=== PATIENT | female | born 1995 | race Caucasian/White ===

== ENCOUNTER 2018-03-30 03:40 | Emergency (ER) | payer BC, SELFPAY ==
[2018-03-30 03:41] VITALS: BP 138/84; PULSE 83; RESP 16; TEMP 36.5; O2SAT 100; BMI 37.0
[2018-03-30] MEDS: Morphine 4 MG/ML Syringe IV ×2 (04:32→05:30)
[2018-03-30] MEDS: Ondansetron 4 MG/2 ML Vial IV (04:32)
[2018-03-30 04:53] LABS: Absolute Lymphocyte Count 2.37 X10^3/ul (0.83-4.51); Absolute Neutrophil Count 4.1 X10^3/uL (2.0-7.7); Basophil# 0.02 X10^3/uL; Basophil% 0.3 % (0-1); Eosinophil# 0.08 X10^3/uL; Eosinophils% 1.1 % (0-5); Hematocrit 40.5 % (37-47); Hemoglobin 13.5 g/dl (12.0-15.0); Lymphocyte # 2.37 X10^3/ul (4.0); Lymphocyte % 32.3 % (19-41); Mean Corp Hgb Conc 33.3 g/gl (32-36); Mean Platelet Vol. 9.3 fl (6.2-12.0); Monocyte# 0.75 X10^3/uL; Monocyte% 10.2 % (0-10); Neutrophil # 4.12 X10^3/uL (2.7-7.7); Neutrophil % 56.1 % (47-70); Platelet Count 264 K/mm3 (150-450); RBC Distribution Width CV 13.1 % (11.6-14.6); RBC Distribution Width SD 42.7 fl (35.1-43.9); White Blood Count 7.3 K/mm3 (4.4-11.0)
[2018-03-30 04:55] LABS: POSITIVE COUNT NO; POSITIVE DIFFERENTIAL NO; POSITIVE MORPHOLOGY NO
--- NOTE | 2018-03-30 05:10 | ED.DCSUM_ITS ---
- ER Visit Summary Date of Service: 03/30/18 Chief Complaint: Abdominal pain History of Present Illness: The patient is a 23 F who presents with right upper quadrant abdominal pain. She states that for the past 2 weeks she has had diarrhea. For the past week she has had nausea and pain with eating. Tonight the pain was more severe beginning at 0100 hours. She has a history of anxiety and is currently on Lexapro. Patient describes the pain is sharp and stabbing in the right upper quadrant and radiates towards her umbilicus. Physical Examination: Afebrile vital signs are stable Gen: Well-nourished well-developed Head: Normocephalic atraumatic Eyes: Perrl EOMI ENT: TMs clear no rhinorrhea moist mucous membranes Neck: Supple no lymphadenopathy no JVD nontender CVS: Regular rate rhythm no murmurs normal S1-S2 Respiratory: No distress clear to auscultation bilaterally chest nontender Abdomen: Soft mild tenderness to palpation of the right upper quadrant without guarding or rebound nondistended normal bowel sounds no masses Back: Nontender Extremity: Nontender no edema Skin: Normal color no rash Neuro: alert orientated ?3 CN II-XII intact normal strength sensation reflexes gait cerebellar Psych: Normal affect normal mood Test Results: White count is normal Emergency Department Course and Treatment: Bedside ultrasound done by this physician demonstrates gallstones. I do not see any pericholecystic fluid. Patient received morphine and Zofran. This improved the patient's pain. She states that she had a couple episodes where she had pain again and required a second dose of morphine. CBC CMP and lipase were negative. Patient is resting comfortably. I do not believe she needs emergent cholecystectomy. We will set the patient up for outpatient gallbladder ultrasound. We will refer her to Dr. Verde who is on-call for general surgery [facility]. Write for pain and nausea medication. Return instructions given. Impression: 1. Biliary colic 2. Cholelithiasis This note was generated with [employer] dictation software. It may contain incorrect words, spelling, and punctuation that were not noted in review of the chart prior to signing ED Disposition - Plan for ED Patient: Disposition: Home or Assisted Living Chief Complaint: Abd Pain Instructions: Discharge Instructions for Gallstones Prescriptions: Hydrocodone Bitart/Apap 5-325 [[place] 5MG-325MG] 1 tab PO Q6H PRN PRN 3 Days #12 tab PRN Reason: Pain Ondansetron [Zofran Odt] 4 mg PO Q6H PRN PRN #10 tab PRN Reason: Nausea Referrals: Inés Verde MD [STAFF PHYSICIAN] - (Call today to arrange early follow-up. Please tell them you were seen in the emergency department and have gallstones.) Additional Instructions: You need to have a formal gallbladder ultrasound. This is been ordered. Return if concerns fever. You need to follow-up with surgery.
[2018-03-30 05:16] LABS: ALB/GLOB Ratio 0.9 RATIO (0.9-2.4); AST(SGOT) 17 U/L (15-37); Alanine Aminotransfer ALT/SGPT 30 U/L (13-56); Alkaline Phosphatase 67 U/L (45-117); Anion Gap 10 (5-15); BUN 14 mg/dL (7-18); BUN/Creat Ratio 17.7 RATIO (10-20); Calcium,Total 7.9 mg/dL (8.5-10.1); Chloride 107 mmol/L (98-107); Creatinine, Serum 0.79 mg/dL (0.55-1.02); EST Glomerular Filtration Rate 95 mL/min (>60); Est Glom Filt Rate - Afr Amer 115 mL/min (>60); Estimated Creatinine Clearance 78.87 ml/min; Globulin 3.5 g/dL (2.2-4.2); Glucose 94 mg/dL (74-106); Lipase 118 U/L (73-393); Potassium 3.9 mmol/L (3.5-5.1); Protein, Total 6.5 g/dL (6.4-8.2); Sodium Level 141 mmol/L (136-145)
[2018-03-30 05:21] LABS: Pregnancy, Serum, hCG Quali. NEGATIVE Negative (0-9 Nonpreg)
[2018-03-30 05:32] VITALS: BP 133/70; PULSE 73; O2SAT 100
[2018-03-30 06:46] VITALS: BP 146/78; PULSE 73; RESP 18; O2SAT 97
--- NOTE | 2018-03-30 06:47 | ED.RN ---
THIS NURSE REVIEWED D/C INSTRUCTIONS WITH PT. PT VERBALIZED UNDERSTANDING OF INSTRUCTIONS. IV D/C. IV CATHETER INTACT. PT TOLERATED WELL. PT DENIES FURTHER NEEDS OR QUESTIONS AT THIS TIME. PT AMBULATES FROM ROOM ON OWN WITHOUT ASSISTANCE FROM STAFF
--- OUTSIDE RECORDS SUMMARY | 2018-07-01 11:13 | XMS RPT_ITS ---
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 Primary Visit Diagnosis:Screening for STD (sexually transmitted disease) [Z11.3] Other Visit Diagnosis:Encounter for surveillance of implantable subdermal contraceptive [Z30.46] Order(s):GC/CHLAMYDIA DNA DET [SQGCCAMP] Order #: [id number]. #:[id number] SYPHILIS IGG WITH CONF [SQSYPHGX] Order #: [id number]. #:[id number] HIV 1,2 COMBO (AG/AB) [SQHIV12] Order #: [id number]. #:[id number] HEP C AB IA BLOOD [SQAHCV] Order #: [id number]. #:[id number] VAGINALIS AMPLIFICATION [SQTRVAMP] Order #: [id number] FUTURE BACT/TITUS VAG GRAM STAIN [SQBVCNSM] Order #: [id number] FUTURE Prescriptions as of 04/16/2018 Sig: NEXPLANON SDRM by SUBDERMAL route continuous. ACETAMINOPHEN 325 MG TABLET Take 650 mg by mouth every 6 * DICLOFENAC POTASSIUM 50 MG TA* Take 1 tablet by mouth three * Patient not taking: Reported on 02/26/2018 Problem List As Of Date 04/16/2018 Noted Resolved Late care [O09.30] INVALID FOR*05/31/2015 More... History of depression [Z86.59] INVALID FOR* More... Family history of defects [Z82.79] INVALID FOR* More... Supervision of normal first [Z34.00] INVALID FOR*05/31/2015 More... Disposition: Return for Annual exam. . Follow-up and Disposition History Recorded Encounter Status:Closed by ARABELLA WU on 04/18/18 12 LEAD ELECTROCARDIOGRAM Observed: 04/12/2018 Status: F Source: [place] 1:51 PM [facility] REPOSITORY [facility] Cardiovascular Services [address] [place], [place] [address] [address] 12 Lead EKG 04/08/18 1119 MR#: [id number] Acct: [id number] Name: KATHY CANTOR Rep #: [id number] : 1995 23 From: Obed Esteban MD Attending Dr: Inés Verde MD Status: DEP [facility] Ordering Dr: Inés Verde MD Date: 04/08/18 Location: [facility] [place] Sex: F C Admitted: Test Reason : PRE-OP Blood Pressure : / mmHG Vent. Rate : 057 BPM Atrial Rate : 057 BPM P-R Int : 130 ms QRS Dur : 084 ms QT Int : 406 ms P-R-T Axes : 041 052 034 degrees QTc Int : 395 ms Sinus bradycardia with sinus arrhythmia Otherwise normal ECG Confirmed by EULALIA WILEY, OBED ([id number]), deputy editor in chief RODRIGUEZ MONDRAGON ([id number]) on 04/12/2018 1:51:02 PM Referred By: Inés Verde Confirmed By:OBED ESTEBAN MD 04/12/18 1351 Date Obed Esteban MD CC: Jeremie Crow MD; Inés Verde MD Signed DISCHARGE INSTRUCTION Observed: 04/08/2018 Status: F Source: [place] 3:00 PM [facility] REPOSITORY [facility] Medical Records Department [address] [place] [address] Instructions for Home/Discharge Instructions 04/08/18 1253 MR#: [id number] Acct: [id number] Name: KATHY CANTOR Rep #: [id number] : 1995 23 From: Inés Verde MD PCP: Jeremie Crow MD Status: REG [facility] [place] Discharge Diet: Light diet - advance as tolerated Discharge Activity: May not drive while taking narcotic pain medications. May shower in (days): 1 Lifting Restrictions: no lifting >20 lb for 4 weeks Call your doctor if your incision/area has: Continuous Slow Oozing, Sudden Increased Bleeding, Increased Pain/ Swelling, Increased Redness, Foul Smelling Discharge, Swelling at the incision site Call your doctor if you observe: Fever of 101 or Higher Remove Dressing in (days):: 2 - steri strips will fall off in 7-10 days Additional Instructions: Okay to take ibuprofen 400-600 mg PO q6hr PRN along with the Vicodin/Percocet. Avoid Tylenol since there is already Tylenol in the Vicodin/Percocet. Take all pain meds with food. Vicodin/Percocet can cause constipation recommend taking daily stool softener (i.e. Colace/docusate) while taking the pain meds. Recommend starting some MiraLAX tomorrow night if no bowel movement. If still no bowel movement the following day recommend taking magnesium citrate half the bottle and waiting 4-6 hours if still no results take the other half the bottle. Allergies/Adverse Reactions: Allergies No Known Allergies Allergy (Verified 04/07/18 09:02) Medications to take at Discharge Escitalopram Oxalate [Lexapro] 10 mg PO DAILY 03/30/18 Ondansetron [Zofran Odt] 4 mg PO Q6H PRN PRN #10 tab 03/30/18 hydrocodone 5 mg-acetaminophen 325 mg tablet 1 tab PO Q6H PRN 04/02/18 pantoprazole 40 mg tablet,delayed release 40 mg PO DAILY #30 tab 04/02/18 Etonogestrel [Nexplanon] 68 mg BC DAILY 04/07/18 Hydrocodone Bitart/Apap 5-325 [[place] 5MG-325MG] 1 - 2 tablet PO Q4H PRN PRN 5 Days #25 tablet 04/08/18 The following prescriptions were given: Hydrocodone Bitart/Apap 5-325 [[place] 5MG-325MG] 1 - 2 tablet PO Q4H PRN PRN 5 Days #25 tablet PRN Reason: Pain Orders to be completed after discharge: ,Urine Time Frame: 04/08/18, Location: Laboratory Primary Care Physician: Haja Crow MD [Primary Care Provider] - Test Results: Test results from this visit will be discussed in further detail at your follow-up appointment, if applicable. Please Follow Up With: Inés Verde MD - after 5pm/weekends call [phone] with any concerns When: call office for f/u in 2 weeks Proposed Discharge Date: 04/08/18 04/08/18 1500 <Electronically signed by Inés Verde MD> Date Inés Verde MD CC: Jeremie Crow MD Signed OPERATIVE REPORT Observed: 04/08/2018 Status: F Source: [place] 2:58 PM [facility] REPOSITORY [facility] Medical Records Department [address] [place] [address] Operative Report 04/08/18 1455 MR#: [id number] Acct: [id number] Name: KATHY CANTOR Rep #: [id number] : 1995 23 From: Inés Verde MD PCP: Jeremie Crow MD Status: REG [facility] [place] [place] Location: [place] [address] Report of Operation Date of Procedure: 04/08/18 Post-Operative Diagnosis: Acute cholecystitis, cholelithiasis Surgery/Procedure Performed:: Same delivery coordinator: Ramona Napier Type of Anesthesia:: General/Supplemental Anesthesiologist: Gabriel Chávez Special Medications: Cefotetan 2 g IV x1 Specimen's removed: Gallbladder and stones Estimated Blood Loss (mL): <10 cc Fluids Replaced: 1000 cc Description of Procedure: Indications this is a 23 year-old female who developed abdominal pain/nausea/vomiting and on workup was found to have cholelithiasis with a normal common bile duct. Laparoscopic cholecystectomy was elected. Description procedure: The patient was placed on operating table in supine position. General Anesthesia was induced. A timeout was completed verifying correct patient, procedure, site, position, social, and special equipment prior to beginning procedure. An orogastric tube was placed. The abdomen was prepped and draped in usual sterile fashion. An incision was made in the natural skin line above the umbilicus. The fascia was elevated and incised. The peritoneum was elevated and incised. Entry into the peritoneum was confirmed visually and no bowel was noted in the vicinity of the incision. Barfield trocar was placed. The abdomen was insufflated with carbon dioxide to a pressure of 12-15 mmHg. Patient tolerated insufflation well. The laparoscope was then inserted and abdomen inspected. No injuries from initial trocar placement were noted. Additional trochars were then inserted in the following locations 5 mm trocar in the epigastrium and 2 more 5 mm trochars along the right costal margin. The abdomen was inspected no abnormalities were found. The table is placed in reverse Trendelenburg position with the right side up. The adhesions between the gallbladder and omentum were lysed sharply. The dome of the gallbladder was grasped with atraumatic grasper passed through the lateral port and retracted over the dome of the liver. Infundibulum was then grasped with atraumatic grasper through the midclavicular port and retracted to the right lower quadrant. This maneuver exposed Calot's triangle. The peritoneum overlying the gallbladder infundibulum was then incised and cystic duct and artery identified and circumferentially dissected. The Juarez catheter was used for cholangiograms. Angiograms did show good flow into the duodenum with no filling defect as well as no filling defects at the bifurcation of the bile ducts. The cystic duct and artery were then doubly clipped and divided close to the gallbladder. The gallbladder then dissected from its peritoneal attachments by electrocautery. Hemostasis was checked and the gallbladder and contained stones were removed using the endoscopic retrieval bag through the umbilical port. The gallbladder is passed off table as specimen. The gallbladder fossa was copiously irrigated with saline and hemostasis obtained. There is no evidence of bleeding from the gallbladder fossa or cystic artery leakage of bile from the cystic duct stump. Secondary trochars removed under direct vision. No bleeding was noted the trocar sites. The laparoscope was withdrawn and umbilical trocar removed. The abdomen was allowed to collapse. The fascia of the 12 mm trocar was closed with a [id number]-[id number] 0 Vicryl suture. The skin was closed with sutures of 4-0 Monocryl and Steri-Strips. The orogastric tube was removed and the patient was extubated. The patient tolerated procedure well and was taken to the postanesthesia care unit in stable condition. - Complications none 04/08/18 1458 <Electronically signed by Inés Verde MD> Date Inés Verde MD CC: Jeremie Crow MD; Inés Verde MD Signed GALLBLADDER Observed: 04/08/2018 Status: F Source: [place] 12:55 PM [facility] REPOSITORY Patient: KATHY CANTOR : 1995 (23/) Acct Num: [id number] Phys: Inés Verde MD Unit Num: [id number] Loc: [facility] [place] Specimen: [id number] Received: 04/09/18 - 1432 Spec Type: GALLBLADDE TISSUES 1 TISSUES: Gallbladder, NOS GROSS DESCRIPTION Received is one container labeled with the patient's name and designated gallbladder. The specimen consists of a partially opened gallbladder measuring 7 x 5 x 2 cm. The external surface is smooth and glistening. Focally, it is granular, hemorrhagic and contains cautery artifact. The lumen of the gallbladder contains yellow-green mucoid bile. The specimen container contains multiple calculi and fragments of leos-white calculi ranging in size from <0.1 to 2 cm in greatest dimension. The mucosa is bile-stained and without any mass lesions. The gallbladder wall averages 0.3 cm in thickness and is free of mass lesions. Geriatric Care Manager sections of the gallbladder and the cystic duct are submitted in one cassette. / AM:lily 04/09/18 TC:3 CPT: 01582 HEADER OPERATION: Laparoscopic cholecystectomy with IOC PRE-OP DIAGNOSIS: Cholelithiasis, right upper quadrant pain TISSUE SUBMITTED: Gallbladder MICROSCOPIC DESCRIPTION Slides are reviewed. MICROSCOPIC DIAGNOSIS Gallbladder: Chronic cholecystitis and cholelithiasis. Reactive epithelial changes. SJ:lily 04/12/18 Signed Dirk Soto MD 04/12/18 <signature on file> Performed By: #### PGALL #### [facility] [address] [place] [address]. [place], [address] LIVER PROFILE Collected: 04/08/2018 Status: F Source: [place] 11:16 AM [facility] REPOSITORY TYPE CODE TESTS RESULT OUT OF RANGE REFERENCE UNITS LAB L501.1500 6.4-8.2 g/dL Normal T PROT 6.8 LAB L501.1800 3.2-5.0 g/dL Normal ALB 3.4 LAB L501.1950 2.2-4.2 g/dL Normal GLOB 3.4 LAB L501.4100 15-37 U/L Normal AST 16 LAB L501.4305 45-117 U/L Normal ALK P 63 LAB L501.4405 13-56 U/L Normal ALT 17 LAB L501.4600 0.20-1.00 mg/dL Normal T BILI 0.60 LAB L501.4700 0.00-0.30 mg/dL Normal D BILI 0.16 Performed By: #### L500.3400 #### [facility] [address] [place], [address] ,URINE Collected: 04/08/2018 Status: F Source: [place] 11:05 AM [facility] REPOSITORY TYPE CODE TESTS RESULT OUT OF REFERENCE UNITS RANGE LAB L400.8000 Negative Normal HCGUQUAL Negative Result Comment: Very dilute urine specimens, as indicated by a low specific gravity, may not contain reimbursement representative levels of hCG. If is still suspected, a first morning urine specimen should be collected 48 hours later and tested. Performed By: #### L400.7600 #### [facility] [address] [facility] [place], [address] CHOLANGIOGRAM/ O Observed: 04/08/2018 Status: F Source: [place] R,INITIAL 12:40 AM [facility] REPOSITORY [facility] Imaging Services [address] [facility] [place] [address] Cholangiogram/ O R,Initial MR#: [id number] Acct: [id number] Name: KATHY CANTOR Rep #: [id number] : 1995 F 23 From: Drew Baxter DO PCP: Jeremie Crow MD Status: [facility] Study: Cholangiogram/ O R,Initial Date of Exam: 04/08/18 Exam# [id number] Ordering Dr: Inés Verde MD CLINICAL HISTORY: Female, 23 years old. Cholelithiasis. PROCEDURE: CHOLANGIOGRAM - interoperative FLUOROSCOPY TIME (if supplied): ( ) minutes/second TECHNIQUE: 36 interprocedural images were presented for interpretation. FINDINGS: Images demonstrate cannulization of the cystic duct stump. There is injection of contrast which fills the intra and extrahepatic biliary system. There is no stenosis filling defect or dilatation. There is free spillage of contrast into the duodenum. Please refer to the operative report for further details. RAD/Cholangiogram/ O R,Initial IMPRESSION: Interoperative cholangiogram. Electronically Signed: Drew Baxter DO at 19:02 EST Tel [phone], Service support , CC: Jeremie Crow MD; Inés Verde MD Retail Salesworker: Signed EMERGENCY DEPARTMENT Observed: 04/05/2018 Status: F Source: [place] SUMMARY 7:03 AM [facility] REPOSITORY [facility] Medical Records Department [address] [place] [address] Emergency Department Summary 03/30/18 0508 MR#: [id number] Acct: [id number] Name: KATHY CANTOR Rep #: [id number] : 1995 23 From: Hilario Marcus DO PCP: Jeremie Crow MD Status: DEP ER - ER Visit Summary Date of Service: 03/30/18 Chief Complaint: Abdominal pain History of Present Illness: The patient is a 23 F who presents with right upper quadrant abdominal pain. She states that for the past 2 weeks she has had diarrhea. For the past week she has had nausea and pain with eating. Tonight the pain was more severe beginning at 0100 hours. She has a history of anxiety and is currently on Lexapro. Patient describes the pain is sharp and stabbing in the right upper quadrant and radiates towards her umbilicus. Physical Examination: Afebrile vital signs are stable Gen: Well-nourished well-developed Head: Normocephalic atraumatic Eyes: Perrl EOMI ENT: TMs clear no rhinorrhea moist mucous membranes Neck: Supple no lymphadenopathy no JVD nontender CVS: Regular rate rhythm no murmurs normal S1-S2 Respiratory: No distress clear to auscultation bilaterally chest nontender Abdomen: Soft mild tenderness to palpation of the right upper quadrant without guarding or rebound nondistended normal bowel sounds no masses Back: Nontender Extremity: Nontender no edema Skin: Normal color no rash Neuro: alert orientated 3 CN II-XII intact normal strength sensation reflexes gait cerebellar Psych: Normal affect normal mood Test Results: White count is normal Emergency Department Course and Treatment: Bedside ultrasound done by this physician demonstrates gallstones. I do not see any pericholecystic fluid. Patient received morphine and Zofran. This improved the patient's pain. She states that she had a couple episodes where she had pain again and required a second dose of morphine. CBC CMP and lipase were negative. Patient is resting comfortably. I do not believe she needs emergent cholecystectomy. We will set the patient up for outpatient gallbladder ultrasound. We will refer her to Dr. Verde who is on-call for general surgery [facility]. Write for pain and nausea medication. Return instructions given. Impression: 1. Biliary colic 2. Cholelithiasis This note was generated with [employer]ar[employer] dictation software. It may contain incorrect words, spelling, and punctuation that were not noted in review of the chart prior to signing ED Disposition - Plan for ED Patient: Disposition: Home or Assisted Living Chief Complaint: Abd Pain Instructions: Discharge Instructions for Gallstones Prescriptions: Hydrocodone Bitart/Apap 5-325 [[place] 5MG-325MG] 1 tab PO Q6H PRN PRN 3 Days #12 tab PRN Reason: Pain Ondansetron [Zofran Odt] 4 mg PO Q6H PRN PRN #10 tab PRN Reason: Nausea Referrals: Inés Verde MD [STAFF PHYSICIAN] - (Call today to arrange early follow-up. Please tell them you were seen in the emergency department and have gallstones.) Additional Instructions: You need to have a formal gallbladder ultrasound. This is been ordered. Return if concerns fever. You need to follow-up with surgery. What to do if you have Problems For any increased pain, shortness of breath, bleeding, nausea or vomiting, chest pain, or any unexpected problems, contact your Primary Care Provider. Call [facility] ([phone]) or report to the closest Emergency Room. Call 911 if necessary. 04/05/18 0703 <Electronically signed by Hilario Marcus DO> Date Hilario Marcus DO Cosigner Signature (If Indicated): Date CC: Jeremie Crow MD SURGERY VISIT REPORT Observed: 04/02/2018 Status: F Source: [place] 11:04 AM [facility] REPOSITORY [facility] [address] [place] [address] OFFICE VISIT Date of Service: 04/02/18 MR#: [id number] Acct: [id number] Name: KATHY CANTOR Rep #: [id number] : 1995 Provider: Inés Verde MD Age/Sex: 23/F Location: 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 Is patient in pain?: Yes (RUQ/ Epigastric) Pain scale (1-10): 4 Allergies No Known Allergies Allergy (Verified 03/30/18 03:43) Medications Escitalopram Oxalate [Lexapro] 10 mg PO DAILY 03/30/18 [History Confirmed 04/02/18] Ondansetron [Zofran Odt] 4 mg PO Q6H PRN PRN #10 tab 03/30/18 [Rx Confirmed 04/02/18] hydrocodone 5 mg-acetaminophen 325 mg tablet 1 tab PO Q6H PRN 04/02/18 [History Confirmed 04/02/18] pantoprazole 40 mg tablet,delayed release 40 mg PO DAILY #30 tab 04/02/18 [Rx Confirmed 04/02/18] PFSH Medical History Acid reflux (Acute) Constipation (Acute) Diarrhea (Acute) Nausea (Acute) Abdominal pain (Acute) Sleep apnea (Acute) Anxiety (Acute) Depression (Acute) Fatigue (Acute) Surgical History History of carpal tunnel surgery (Acute) right carpal tunnel (Inactive) Family History Grandmother Breast cancer Social History Smoking Status: Never smoker second hand exposure: No alcohol intake: current alcohol intake frequency: a few times a month substance use type: does not use caffeine: Yes HPI HPI HPI: KATHY CANTOR, is a 23 F who presents to the office today for gallstones, right upper quadrant pain. Patient states for a couple months she has been having nausea after eating along with some right upper quadrant pain and also been having diarrhea. Patient did go the ER on 03/30/2018 due to increased pain which she worse at 1 AM and woke her up from sleep. That night patient did have Willoughby's around 5 PM and did have some right upper quadrant pain at that time was able to fall asleep around 9 PM. Patient was given some pain meds in the ER her liver functions as well as a white blood count was within normal limits. A bedside ultrasound by the ER doctor did show gallstones. Patient did undergo a formal ultrasound which showed cholelithiasis, no pericholecystic fluid, common bile duct of 2.4 mm, gallbladder wall in one location was measured at 3.4 on my remeasurement is more like 3 mm. Patient also complains of daily reflux symptoms with burning upper esophagus after eating. She is currently on no medications for this. She also states she has had some epigastric pain as well as the right upper quadrant pain. Patient states that her problems are either diarrhea or constipation. Patient states she has been able to eat she is tries to eat smaller meals like this morning she had a [employer] sandwich states that her abdominal pain was okay. ROS General General: Yes weight change (gain 20lb in 6-9 months) HEENT HEENT: No difficulty swallowing, eye injury, eye surgery, swollen glands or hoarseness Endo Endocrine: No thyroid disease, diabetes mellitus, thyroid cancer, Hair loss, heat intolerance or cold intolerance Skin Skin: No rash or changing moles Musc Musculoskeletal: Yes back problems; no arthritis, rheumatoid arthritis, gout or joint pain Cardio Cardiovascular: No murmur, pacemaker, heart disease, atrial fibrillation, high blood pressure, heart attack, heart stent, palpitations, shortness of breat with exertion or chest pain Psych Psychiatric: Yes depression and anxiety Resp Respiratory: Yes shortness of breath, Yes sleep apnea, No cough, No COPD, No asthma, No emphysema, No wheezing Gastro Gastrointestinal: Yes abdominal pain, Yes diarrhea, Yes constipation, No blood in stool, Yes acid reflux, No hemorrhoids, No ulcers, Yes gallbladder problem, No black,tarry stools, Yes nausea or vomiting (no vomiting) [place] Hematologic: No blood thinners, No blood disorders, No bleeding, No anemia, No blood clots Neuro Neurologic: No lack of coordination, No confusion Exam Const General: cooperative, comfortable, no acute distress Resp Effort AND Inspection: normal respiratory effort Cardio Rate: regular rate Heart Sounds: no murmurs GI Inspection: non-distended, obesity Palpation: soft, no guarding, tender (RUQ,epigastric>LUQ, no PS) Assessment AND Plan Problems 1. Cholelithiasis K80.20 2. GERD (gastroesophageal reflux disease) K21.9 3. RUQ pain R10.11 4. 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 We will plan for surgery on 04/08/18. We will also start patient on Protonix 40 mg p.o. daily discussed with patient okay to take famotidine 20 mg to 40 mg daily for the first 2 days to help control the initial symptoms as Protonix may take 1- 2 days to work. Reviewed the anatomy with the patient and discussed the procedure: laparoscopic cholecystectomy with cholangiograms, possible open. Review risks including but not limited to bleeding, infection, hernia, bile leak/retained gallstones requiring another procedure ERCP- Endoscopic Retrograde Cholangiopancreatography, injury to another organ (bile ducts, common bile duct, small bowel, etc.) which may require transfer to her surgery care facility and conversion to an open procedure. All questions were answered. Inés Verde M.D. Pager: [phone] [facility] [address] [place] [address], [facility], [address] [place] [address] Office: [phone] Medications New: Plan Detail Follow Up We will schedule surgery lap scopic cholecystectomy for 04/01 Coding Level of Care Code Off vis,new,level 4 Diagnoses Cholelithiasis K80.20 GERD (gastroesophageal reflux disease) K21.9 RUQ pain R10.11 Epigastric abdominal pain R10.13 Time Spent (min) 45 04/02/18 1104 <Electronically signed by Inés Verde MD> Date Inés Verde MD Cosigner Signature: Date (if applicable) CC: Jeremie Crow MD GALLBLADDER Observed: 04/01/2018 Status: F Source: [place] 9:24 AM [facility] REPOSITORY [facility] Imaging Services [address] [place] [address] Gallbladder MR#: [id number] Acct: [id number] Name: CANTORPRAKASH RESTREPORA Alvarado Rep #: [id number] : 1995 F 23 From: Ron Esparza MD PCP: Jeremie Crow MD Status: REG CLI Study: Gallbladder Date of Exam: 04/01/18 Exam# [id number] Ordering Dr: Hilario Marcus DO STUDY: ABDOMINAL ULTRASOUND - RIGHT UPPER QUADRANT REASON FOR VISIT: Female, 23 years old. Biliary colic, pain in the right upper quadrant especially after meals. TECHNIQUE: Ultrasound evaluation of the right upper quadrant was performed with real-time and static sylvester-scale imaging. TECHNICAL QUALITY: Adequate. COMPARISON: CT abdomen and pelvis 02/10/2016. FINDINGS: Liver: The liver measures 15.4 cm. There is normal echogenicity of the liver. The bile ducts are within normal limits. There is hepatic color flow. The direction of portal flow is hepatopetal. There is no demonstrated mass lesion. Gallbladder: Normal distended gallbladder. The gallbladder wall measures 3.4 mm. There is a negative sonographic Perry's sign. There is no pericholecystic fluid. Multiple small echogenic shadowing gallstones. Common Bile Duct (C.B.D.): The common bile duct measures 2.4 mm. Pancreas: Normal size of the head, body and tail of the pancreas. There is normal echogenicity of the pancreas. There is no demonstrated pancreatic mass or cyst. Right Kidney: Normal size of the right kidney. The right kidney measures 10.0 cm. Normal renal cortex. The right cortex measures 1.0 cm. There is no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 Psychiatry Mother DEPRESSION - Psychiatry Maternal Grandmother DEPRESSION - Breast Cancer Maternal Grandmother 70 - Diabetes Paternal Grandfather - Hypertension Paternal Grandfather - Asthma Brother Social History Marital status: Single Spouse name: Years of education: 12 Number of children: Occupational History Occupation Employer Comment assembly [employer] Social History Main Topics Smoking status: Former Smoker Packs/day: 0.00 Years: 1.00 Quit date: 07/27/2012 Smokeless status: Never Used Alcohol use: Yes Drug use: No Sexual activity: Yes Partners with: Male control/protection: Implant Current Outpatient Prescriptions: ETONOGESTREL (NEXPLANON SDRM) by SUBDERMAL route continuous. acetaminophen (TYLENOL) 325 mg tablet Take 650 mg by mouth every 6 hours as needed. Ibuprofen 200 mg cap Take by mouth as needed. Ugvsvkop-Ma-Ifr-Fe-FA ( VITAMIN) tab Take 1 tablet by mouth. No current facility-administered medications for this visit. Allergies As of Date: 05/13/2017 (No Known Allergies) Fully Assessed 05/13/2017 REVIEW OF SYSTEMS Abdomen: No bloating, early satiety, indigestion, or increased flatulence. No abdominal pain, nausea, vomiting, diarrhea, or constipation. Bladder: No dysuria, gross hematuria, urinary frequency, urinary urgency, or incontinence. Breast: No breast lumps, nipple d/c, overlying skin changes, redness or skin retraction. Expanded ROS: N/A Allergies and current medication updated:Yes EXAM: BP 110/68 Wt 187 lb (84.8kg) GENERAL: pleasant, female in no apparent distress HEENT: Normocephalic and atraumatic NECK: Supple and full range of motion DERMATOLOGY: Normal and without lesions ABDOMEN: soft, non-tender and no masses PELVIC: external genitalia normal, normal Bartholin's glands, urethra, [place]'s glands, no vulvar lesions, no cervical lesions, good vaginal support, normal appearing perineal body and perianal region. White discharge, small amount BIMANUAL: uterus normal size, shape and consistency, no adnexal masses and non-tender NEURO: alert and oriented x3,exam grossly non-focal EXTREMITIES: normal ASSESSMENT AND PLAN: 1. Pelvic pain in female - ICD9: 625.9, ICD10: R10.2 (primary diagnosis) - PELVIC US WHI - URINE CULTURE - HCG QUAL UR 2. High risk sexual behavior - ICD9: V69.2, ICD10: Z72.51 - TRICHOMONAS PREP - GC/CHLAMYDIA DNA DET 3. Vaginal discharge - ICD9: 623.5, ICD10: N89.8 - BACT/TITUS VAG GRAM STAIN Follow up in 2 weeks for results. Arabella Wu CNM Take Down Inspector offered: Patient declines. CNOV Observed: 05/13/2017 Status: COMPLETED Source: [place] 3:45 PM [facility] REPOSITORY Office Visit (WOOB) KATHY CANTOR ([id number]) 1995 F Date Time Provider Department 05/13/17 3:45 PM ARABELLA WU) WOOB During your visit today, we recorded the following information about you: Blood pressure Weight 110/68 84.8 kg Arabella Wu CNM 05/13/2017 4:40 PM Signed Kathy Cantor is a 22 year old female who presents for problem visit pelvic pain HPI: cramping and irregular menses. Cramping frequent, most days, goes from light dull cramping 3/10 to sharp stabbing pain /10. Pain started the beginning of February 2017. Pain started after Carpal tunnel surgery(February 05, 2017. Was taking Vicodin for first two weeks after surgery. Takes Ibuprofen for cramping but not effective. Bleeding throughout the month, bleeding every other week. Prior to surgery had menses every month. Nexplanon inserted 05/2015. Pain is a 3/10 today. Denies any vaginal itching, burning or odor. Single, current partner x 6 months. PAST MEDICAL HISTORY Diagnosis Date - Depression - FRACTURE 2003 ARMS, PLAYGROUND ACCIDENT - Venereal warts PAST SURGICAL HISTORY Procedure Laterality Date - CARPAL TUNNEL Right 02/05/2017 - NEXPLANON INSERTION 06/11/2015 inserted by DM FAMILY HISTORY Problem Relation Age of Onset - Alcohol/Drug Mother DRUG - Psychiatry Mother DEPRESSION - Psychiatry Maternal Grandmother DEPRESSION - Breast Cancer Maternal Grandmother 70 - Diabetes Paternal Grandfather - Hypertension Paternal Grandfather - Asthma Brother Social History Marital status: Single Spouse name: Years of education: 12 Number of children: Occupational History Occupation Employer Comment assembly [employer] Social History Main Topics Smoking status: Former Smoker Packs/day: 0.00 Years: 1.00 Quit date: 07/27/2012 Smokeless status: Never Used Alcohol use: Yes Drug use: No Sexual activity: Yes Partners with: Male control/protection: Implant Current Outpatient Prescriptions: ETONOGESTREL (NEXPLANON SDRM) by SUBDERMAL route continuous. acetaminophen (TYLENOL) 325 mg tablet Take 650 mg by mouth every 6 hours as needed. Ibuprofen 200 mg cap Take by mouth as needed. Aqledtng-Kk-Aul-Fe-FA ( VITAMIN) tab Take 1 tablet by mouth. No current facility-administered medications for this visit. Allergies As of Date: 05/13/2017 (No Known Allergies) Fully Assessed 05/13/2017 REVIEW OF SYSTEMS Abdomen: No bloating, early satiety, indigestion, or increased flatulence. No abdominal pain, nausea, vomiting, diarrhea, or constipation. Bladder: No dysuria, gross hematuria, urinary frequency, urinary urgency, or incontinence. Breast: No breast lumps, nipple d/c, overlying skin changes, redness or skin retraction. Expanded ROS: N/A Allergies and current medication updated:Yes EXAM: BP 110/68 Wt 187 lb (84.8kg) GENERAL: pleasant, female in no apparent distress HEENT: Normocephalic and atraumatic NECK: Supple and full range of motion DERMATOLOGY: Normal and without lesions ABDOMEN: soft, non-tender and no masses PELVIC: external genitalia normal, normal Bartholin's glands, urethra, [place]'s glands, no vulvar lesions, no cervical lesions, good vaginal support, normal appearing perineal body and perianal region. White discharge, small amount BIMANUAL: uterus normal size, shape and consistency, no adnexal masses and non-tender NEURO: alert and oriented x3,exam grossly non-focal EXTREMITIES: normal ASSESSMENT AND PLAN: 1. Pelvic pain in female - ICD9: 625.9, ICD10: R10.2 (primary diagnosis) - PELVIC US WHI - URINE CULTURE - HCG QUAL UR 2. High risk sexual behavior - ICD9: V69.2, ICD10: Z72.51 - TRICHOMONAS PREP - GC/CHLAMYDIA DNA DET 3. Vaginal discharge - ICD9: 623.5, ICD10: N89.8 - BACT/TITUS VAG GRAM STAIN Follow up in 2 weeks for results. Arabella Wu CNM Take Down Inspector offered: Patient declines. Annmarie Carpenter Ma 05/13/2017 4:46 PM Signed Addended by: ANNMARIE CARPENTER MA on: 05/13/2017 04:46 PM Modules accepted: Orders Referring Provider: SELF [200] Allergies As of Date: 05/13/2017 (No Known Allergies) Date Reviewed: 05/13/2017 Reviewed by: Arabella Wu - Fully Assessed Reason for Visit: Abdominal Pain [1] Cmt: Cramping with Nexplanon Primary Visit Diagnosis:Pelvic pain in female [R10.2] Other Visit Diagnoses:High risk sexual behavior [Z72.51] Vaginal discharge [N89.8] Order(s):PELVIC US WHI [2250776] Order #: [id number]: 1 URINE CULTURE [SQURCUL] Order #: [id number] BACT/TITUS VAG GRAM STAIN [SQBVCNSM] Order #: [id number] FUTURE TRICHOMONAS PREP [SQTRICHO] Order #: [id number] GC/CHLAMYDIA DNA DET [SQGCCAMP] Order #: [id number] HCG QUAL UR [SQUHCG] Order #: [id number] FUTURE HCG QUAL UR B/O [7938128] Order #: [id number] Prescriptions as of 05/13/2017 Sig: NEXPLANON SDRM by SUBDERMAL route continuous. ACETAMINOPHEN 325 MG TABLET Take 650 mg by mouth every 6 * IBUPROFEN 200 MG CAPSULE Take by mouth as needed. VITAMIN,CALCIUM,MINE* Take 1 tablet by mouth. Problem List As Of Date 05/13/2017 Noted Resolved Late care [O09.30] INVALID FOR*05/31/2015 More... History of depression [Z86.59] INVALID FOR* More... Family history of defects [Z82.79] INVALID FOR* More... Supervision of normal first [Z34.00] INVALID FOR*05/31/2015 More... Disposition: Return in about 2 weeks (around 05/27/2017) for follow up in 2 weeks after U/S. Follow-up and Disposition History Recorded Encounter Status:Closed by ARABELLA WU on 05/13/17 Observed: 05/13/2017 Status: F Source: [place] BACT/CAND VAG GRM ST 1:04 AM [facility] REPOSITORY Sp. Request/Comment: - Swab Smear Result - BACTERIAL VAGINOSIS RESULT: Stain results consistent with bacterial vaginosis. --> ABNORMAL ALERT No Yeast observed No Polymorphonuclear leukocytes Performed By: #### BVCNSM #### [facility] [address] [id number] Observed: 05/13/2017 Status: F Source: [place] TRICHOMONAS PREP 1:03 AM [facility] REPOSITORY Sp. Request/Comment: - Swab Smear Result - Negative for Trichomonas vaginalis antigen This test was developed and its performance characteristics determined by [facility]'s [facility] [place] ([facility]). It has not been cleared or approved by the FDA. [facility] is regulated under CLIA as qualified to perform high-complexity testing. This test is used for clinical purposes. It should not be regarded as investigational or for research. Performed By: #### TRICHO #### [facility] [address] [place], [place] [address] ORTHOPEDIC VISIT Observed: 05/06/2017 Status: F Source: [place] REPORT 12:18 PM [facility] REPOSITORY [facility] Orthopa[facility]ics AND Sports Medicine [address] [place] [address] OFFICE VISIT Date of Service: 03/18/17 MR#: [id number] Acct: [id number] Name: KATHY CANTOR Rep #: [id number] : 1995 Provider: Anton Kevin DO Age/Sex: 22/F Location: [facility] [place].SMO Status: Signed Intake Intake Visit Reasons: RIGHT WRIST Is patient in pain?: No Allergies No Known Allergies Allergy (Verified 03/18/17 13:03) Medications Acetaminophen [Tylenol Extra Strength] 500 - 1,000 mg PO Q6H PRN PRN 01/30/17 [History Confirmed 03/18/17] Docusate Sodium [Colace] 100 mg PO BID PRN PRN #10 cap 02/05/17 [Rx Confirmed 03/18/17] ProMETHAzine [Phenergan] 25 mg PO Q4H PRN PRN #10 tab 02/05/17 [Rx Confirmed 03/18/17] PFSH Medical History Surgical aftercare, musculoskeletal system (Acute) Surgical History right carpal tunnel (Inactive) Social History Smoking Status: Never smoker HPI RIGHT WRIST: Details: KATHY CANTOR is a 22 year old F here today for f/u ctr dos 02/05/17 who is doing well, she has no complaints of pain and just a slight sensation change. Denies numbness, tingling or other associated symptoms. ROS Const Reports system reviewed and no additional complaints, except as docu Eyes Reports system reviewed and no additional complaints, except as docu ENT Reports system reviewed and no additional complaints, except as docu Card Reports system reviewed and no additional complaints, except as docu Resp Reports system reviewed and no additional complaints, except as docu GI Reports system reviewed and no additional complaints, except as docu Musc Reports as per HPI, Reports system reviewed and no additional complaints, except as docu Skin/Breast Reports system reviewed and no additional complaints, except as docu Neuro Yes system reviewed and no additional complaints, except as docu Psych Reports system reviewed and no additional complaints, except as docu Endo Reports system reviewed and no additional complaints, except as docu Ortho Exam Right Wrist Skin/Wound: Yes CDI Contralateral Normal: Yes Right Wrist: Yes ROM-Extension 0-60, ROM-Flexion 0-80, ROM- Pronation 0-80 and ROM-Supination 0-90 Motor: EPL: 5, FDP-2: 5, 1st Dorsal Interosseous: 5, APB: 5 Sensation: Radial: I, Ulnar: I, Median: I Assessment AND Plan Problems 1. Orthopedic aftercare Plan Assessment: After orthopedic status post right wrist open carpal tunnel release-doing well. Plan: We will provide the patient with a return to work slip at this point time. I will see the patient back 6 weeks as needed. A major issues please contact me. 03/18/17 1130 <Electronically signed by Anton Kevin DO> Date Anton Kevin DO Cosign Signature: Date (if applicable) CC: OFFICE VISIT REPORT Observed: 03/18/2017 Status: F Source: ARNEL 2:52 PM [facility] [place] [address] OFFICE VISIT Status: Signed Patient: KATHY CANTOR Date of Service: 03/18/17 MR#: [id number] : 1995 Provider: Anton Kevin DO Acct: [id number] Age/Sex: 22/F [place] [place]: Intake Intake Visit Reasons: RIGHT WRIST Is patient in pain?: No Allergies No Known Allergies Allergy (Verified 03/18/17 13:03) Medications Acetaminophen [Tylenol Extra Strength] 500 - 1,000 mg PO Q6H PRN PRN 01/30/17 [History Confirmed 03/18/17] Docusate Sodium [Colace] 100 mg PO BID PRN PRN #10 cap 02/05/17 [Rx Confirmed 03/18/17] ProMETHAzine [Phenergan] 25 mg PO Q4H PRN PRN #10 tab 02/05/17 [Rx Confirmed 03/18/17] PFSH Medical History Surgical aftercare, musculoskeletal system (Acute) Surgical History right carpal tunnel (Inactive) Social History Smoking Status: Never smoker HPI RIGHT WRIST: Details: KATHY CANTOR is a 22 year old F here today for f/u ctr dos 02/05/17 who is doing well, she has no complaints of pain and just a slight sensation change. Denies numbness, tingling or other associated symptoms. ROS Const Reports system reviewed and no additional complaints, except as docu Eyes Reports system reviewed and no additional complaints, except as docu ENT Reports system reviewed and no additional complaints, except as docu Card Reports system reviewed and no additional complaints, except as docu Resp Reports system reviewed and no additional complaints, except as docu GI Reports system reviewed and no additional complaints, except as docu Musc Reports as per HPI, Reports system reviewed and no additional complaints, except as docu Skin/Breast Reports system reviewed and no additional complaints, except as docu Neuro Yes system reviewed and no additional complaints, except as docu Psych Reports system reviewed and no additional complaints, except as docu Endo Reports system reviewed and no additional complaints, except as docu 03/18/17 1452 <Electronically signed by Anton Kevin DO> Date Anton Kevin DO Cosigner Signature (if applicable): Date CC: Status: ALLERGIES ALLERGIES DATE TYPE / CODE NAME / CODE REACTION SEVERITY SOURCE 04/22/2018 Drug No Known Unknown [place] [facility] Allergy/416 Allergies/V27708 Hospital 283319(SNOM 0388(RXNORM) Repository ED CT) Drug NO KNOWN [facility] Class/42740 ALLERGIES Main [place] 1003(SNOMED Repository CT) ENCOUNTERS ENCOUNTERS ADMIT/DISCHARGE ACCOUNT ADMITTING ENCOUNTER LOCATION SOURCE NUMBER CLASS 04/22/2018/04/22/19 [id number] Ambulatory BMSBuilding:B [place] 19 MS.[facility] Repository 04/20/2018/04/21/19 [id number] Ambulatory [address] Repository 04/16/2018/04/16/19 [id number] Ambulatory [address] Repository 04/16/2018/04/19/19 [id number] Ambulatory [address] Repository 04/08/2018 [id number] Ambulatory BMSBuilding:B [place] MS.CF.[facility] Repository 04/08/2018/04/08/20 [id number] Ambulatory [address] ing:SDCRoom: Repository AC15 04/08/2018 [id number] Ambulatory BMSBuilding:W [place] [facility] Repository 04/02/2018/04/02/20 [id number] Ambulatory BMSBuilding:B [place] [address] MS[facility] Repository 04/01/2018 [id number] Ambulatory [facility] ing:US Repository 03/30/2018/03/30/20 [id number] Emergency [address] ing:ED Repository 02/26/2018/03/01/20 [id number] Ambulatory [address] Repository 06/09/2017/06/16/19 [id number] Ambulatory [address] Repository 05/21/2017/05/22/19 [id number] Ambulatory [address] Repository 05/13/2017/05/14/19 [id number] Ambulatory [address] Repository 03/18/2017/03/18/20 [id number] Ambulatory BMSBuilding:B [place] [facility] MS[facility] Repository PAYERS PAYERS ENCOUNTER GUARANTOR PAYER SUBSCRIBER SOURCE 04/22/2018 KATHY Alvarado Primary KATHY [id number] [facility] y Number: [id number] [id number] Repository [address]Ydd: [phone] sugar Date:5567-06-66Nx [phone] () [address] [place] [address]LC: 04/22/2018 Secondary NOT GIVENUNK [place] Insurance:SELF PAY [facility] Number: Effective Repository Date:2018-04-20 04/08/2018 KATHY J Primary KATHY J [place] [id number] Insurance:ANTHEMPolic HUFFMANDOB: Community [place]QU[place] y Number: [id number], [place] [id number] Repository [address]Bhi: [phone] sugar Date:6230-08-86Gd [phone] () [address] [place] [address]LN: 04/08/2018 Secondary NOT GIVENUNK [place] Insurance:SELF PAY [facility] Number: Effective Repository Date:2018-04-08 04/08/2018 KATHY J Primary KATHY J [place] [id number] Insurance:ANTHEMPolic HUFFMANDOB: Community DEQUAN y Number: [id number], [place] [id number] Repository [address]Ecs: [phone] sugar Date:2030-43-06Hp [phone] () [address] [place] [address]KE: 04/08/2018 Secondary NOT GIVENUNK [place] Insurance:SELF PAY [facility] Number: Effective Repository Date:2018-04-07 04/08/2018 KATHY J Primary KATHY J [place] [id number] Insurance:ANTHEMPolic HUFFMANDOB: Community DEQUAN y Number: [id number], [place] [id number] Repository [address]Qtg: [phone] sugar Date:4286-19-69Xd [phone] () [address], [place] [address]KN: 04/08/2018 Secondary NOT GIVENUNK [place] Insurance:SELF PAY [facility] Number: Effective Repository Date:2018-04-08 04/02/2018 KATHY J Primary KATHY J [place] [id number] Insurance:ANTHEMPolic HUFFMANDOB: Community DEQUAN y Number: [id number], [place] [id number] Repository [address]Pmt: [phone] sugar Date:7487-80-49Vf [phone] () [address] [place] [address]TS: 04/02/2018 Secondary NOT GIVENUNK [place] Insurance:SELF PAY [facility] Number: Effective Repository Date:2018-04-01 04/01/2018 KATHY J Primary KATHY J [place] [id number] Insurance:ANTHEMPolic HUFFMANDOB: Community DEQUAN y Number: [id number], [place] [id number] Repository [address]Ejr: [phone] sugar Date:0174-77-10Uk [phone] () [address] [place] [address]KY: 04/01/2018 Secondary NOT GIVENUNK [place] Insurance:SELF PAY [facility] Number: Effective Repository Date:2018-03-30 03/30/2018 KATHY J Primary KATHY J [place] [id number] Insurance:ANTHEMPolic HUFFMANDOB: Community DEQUAN y Number: [id number], [place] [id number] Repository [address]Jdg: [phone] sugar Date:5692-07-48Mk [phone] () [address] [place] [address]ZK: 03/30/2018 Secondary NOT GIVENUNK [place] Insurance:SELF PAY [facility] Number: Effective Repository Date:2018-03-30 03/18/2017 KATHY J Primary KATHY J [place] [id number] Insurance:ANTHEMPolic HUFFMANDOB: Community DEQUAN y Number: [id number], [place] [id number] Repository [address]Qiy: [phone] sugar Date:3815-89-18CD [phone] () [address], [place] [address]WY: 03/18/2017 Secondary KATHY J [place] Insurance:SELF INS HUFFMANDOB: Community [facility] Number: [id number] Hospital [id number] Repository Date:5212-07-99CDKEVMCUYUNA [facility] [address] [address]VS[place], [place] [address]PJ: 03/18/2017 Tertiary NOT GIVENUNK [place] Insurance:SELF PAY [facility] Number: Effective Repository Date:2017-03-14
== END 2018-03-30 06:48 | disposition home or self-care (01) ==
PROVIDERS: Emergency Provider Emergency Medicine; Family Provider Family Medicine; PCP Family Medicine
DX: K80.70 Calculus of gallbladder and bile duct without cholecystitis without obstruction (principal); F41.9 Anxiety disorder, unspecified
CPT/HCPCS: 80053; 83690; 84703; 85025; 96374; 96375; 96376; 99283; A4216; J2405

== ENCOUNTER → 2018-04-01 09:19 | Outpatient (CLI) | payer BC, SELFPAY ==
[2018-03-30 03:41] VITALS: BMI 37.0
--- NOTE | 2018-04-01 09:24 | US_ITS ---
STUDY: ABDOMINAL ULTRASOUND - RIGHT UPPER QUADRANT REASON FOR VISIT: Female, 23 years old. Biliary colic, pain in the right upper quadrant especially after meals. TECHNIQUE: Ultrasound evaluation of the right upper quadrant was performed with real-time and static sylvester-scale imaging. TECHNICAL QUALITY: Adequate. COMPARISON: CT abdomen and pelvis 02/10/2016. FINDINGS: Liver: The liver measures 15.4 cm. There is normal echogenicity of the liver. The bile ducts are within normal limits. There is hepatic color flow. The direction of portal flow is hepatopetal. There is no demonstrated mass lesion. Gallbladder: Normal distended gallbladder. The gallbladder wall measures 3.4 mm. There is a negative sonographic Perry's sign. There is no pericholecystic fluid. Multiple small echogenic shadowing gallstones. Common Bile Duct (C.B.D.): The common bile duct measures 2.4 mm. Pancreas: Normal size of the head, body and tail of the pancreas. There is normal echogenicity of the pancreas. There is no demonstrated pancreatic mass or cyst. Right Kidney: Normal size of the right kidney. The right kidney measures 10.0 cm. Normal renal cortex. The right cortex measures 1.0 cm. There is no demonstrated renal mass or cyst. There is no right hydronephrosis. US/Gallbladder IMPRESSION: Cholelithiasis without secondary sonographic features of acute cholecystitis. No biliary ductal ectasia. Electronically Signed: Ron Esparza MD at 11:17 EST Tel , Service support ,
== END ==
PROVIDERS: Family Provider Family Medicine; PCP Family Medicine; Referring Provider Emergency Medicine; Visit Provider Emergency Medicine
DX: K80.20 Calculus of gallbladder without cholecystitis without obstruction (principal)
CPT/HCPCS: 76705

== ENCOUNTER 2018-04-08 10:51 | Day surgery (SDC) | payer BC, SELFPAY ==
[2018-04-02 10:28] VITALS: BMI 37.0
[2018-04-08] VITALS (10 sets, daily range): BP systolic 110–123; BP diastolic 58–76; PULSE 63–88; RESP 14–18; TEMP 36.4–37.6; O2SAT 93–100; BMI 38.3
--- NOTE | 2018-04-08 11:06 | EKG12_ITS ---
Test Reason : PRE-OP Blood Pressure : / mmHG Vent. Rate : 057 BPM Atrial Rate : 057 BPM P-R Int : 130 ms QRS Dur : 084 ms QT Int : 406 ms P-R-T Axes : 041 052 034 degrees QTc Int : 395 ms Sinus bradycardia with sinus arrhythmia Otherwise normal ECG Confirmed by EULALIA WILEY, LINDA ([id number]), editor greeting card RODRIGUEZ MONDRAGON ([id number]) on 04/12/2018 1:51:02 PM Referred By: Inés Verde Confirmed By:LINDA ESTEBAN MD
[2018-04-08 11:15] LABS: Internal QC Validated? YES +Cl - CLEAR BKGD; Pregnancy, Urine Negative Negative
[2018-04-08 11:44] LABS: AST(SGOT) 16 U/L (15-37); Alanine Aminotransfer ALT/SGPT 17 U/L (13-56); Albumin, Serum 3.4 g/dL (3.2-5.0); Alkaline Phosphatase 63 U/L (45-117); Bilirubin, Direct 0.16 mg/dL (0.00-0.30); Globulin 3.4 g/dL (2.2-4.2); Protein, Total 6.8 g/dL (6.4-8.2)
--- NOTE | 2018-04-08 12:55 | DCINST_ITS ---
Discharge Diet: Light diet - advance as tolerated Discharge Activity: May not drive while taking narcotic pain medications. May shower in (days): 1 Lifting Restrictions: no lifting >20 lb for 4 weeks Call your doctor if your incision/area has: Continuous Slow Oozing, Sudden Increased Bleeding, Increased Pain/ Swelling, Increased Redness, Foul Smelling Discharge, Swelling at the incision site Call your doctor if you observe: Fever of 101 or Higher Remove Dressing in (days):: 2 - steri strips will fall off in 7-10 days Additional Instructions: Okay to take ibuprofen 400-600 mg PO q6hr PRN along with the Vicodin/Percocet. Avoid Tylenol since there is already Tylenol in the Vicodin/Percocet. Take all pain meds with food. Vicodin/Percocet can cause constipation recommend taking daily stool softener (i.e. Colace/docusate) while taking the pain meds. Recommend starting some MiraLAX tomorrow night if no bowel movement. If still no bowel movement the following day recommend taking magnesium citrate half the bottle and waiting 4-6 hours if still no results take the other half the bottle. Allergies/Adverse Reactions: Allergies No Known Allergies Allergy (Verified 04/07/18 09:02) Medications to take at Discharge Escitalopram Oxalate [Lexapro] 10 mg PO DAILY 03/30/18 Ondansetron [Zofran Odt] 4 mg PO Q6H PRN PRN #10 tab 03/30/18 hydrocodone 5 mg-acetaminophen 325 mg tablet 1 tab PO Q6H PRN 04/02/18 pantoprazole 40 mg tablet,delayed release 40 mg PO DAILY #30 tab 04/02/18 Etonogestrel [Nexplanon] 68 mg BC DAILY 04/07/18 Hydrocodone Bitart/Apap 5-325 [[place] 5MG-325MG] 1 - 2 tablet PO Q4H PRN PRN 5 Days #25 tablet 04/08/18 The following prescriptions were given: Hydrocodone Bitart/Apap 5-325 [[place] 5MG-325MG] 1 - 2 tablet PO Q4H PRN PRN 5 Days #25 tablet PRN Reason: Pain Orders to be completed after discharge: ,Urine Time Frame: 04/08/18, Location: Laboratory Primary Care Physician: Haja Crow MD [Primary Care Provider] - Test Results: Test results from this visit will be discussed in further detail at your follow- up appointment, if applicable. Please Follow Up With: Inés Verde MD - after 5pm/weekends call [phone] with any concerns When: call office for f/u in 2 weeks Proposed Discharge Date: 04/08/18
--- NOTE | 2018-04-08 12:55 | GALL_PTH ---
PATIENT: KATHY SOUZA [place] [facility] [id number] AGE/SX: 23/F ROOM: RE04/08/[address]: Dr. Inés Verde MD : [id number] BED: DIS: 04/08/2018 SPEC #: [id number] RECD: 04/09/18 14:32 STATUS: SUSAN RENanci #: [id number] [place]: 04/08/18 12:[address]: Inés Vedre DEPT: SURGICAL PATHOLOGY RECD BY: Ron Woods ENTERED: 04/09/18 14:33 SP TYPE: ISACC LARA DR: Dr. Jeremie Crow MD Tissues: Gallbladder, NOS Procedures: Surgery Specimen Level III HEADER OPERATION: Laparoscopic cholecystectomy with IOC PRE-OP DIAGNOSIS: Cholelithiasis, right upper quadrant pain TISSUE SUBMITTED: Gallbladder MICROSCOPIC DIAGNOSIS Gallbladder: Chronic cholecystitis and cholelithiasis. Reactive epithelial changes. SJ:lily 04/12/18 MICROSCOPIC DESCRIPTION Slides are reviewed. GROSS DESCRIPTION Received is one container labeled with the patient's name and designated gallbladder. The specimen consists of a partially opened gallbladder measuring 7 x 5 x 2 cm. The external surface is smooth and glistening. Focally, it is granular, hemorrhagic and contains cautery artifact. The lumen of the gallbladder contains yellow-green mucoid bile. The specimen container contains multiple calculi and fragments of leos-white calculi ranging in size from <0.1 to 2 cm in greatest dimension. The mucosa is bile-stained and without any mass lesions. The gallbladder wall averages 0.3 cm in thickness and is free of mass lesions. Clutch Specialist sections of the gallbladder and the cystic duct are submitted in one cassette. / AM:lily 04/09/18 TC:3 CPT: 88256
--- NOTE | 2018-04-08 14:30 | RAD_ITS ---
CLINICAL HISTORY: Female, 23 years old. Cholelithiasis. PROCEDURE: CHOLANGIOGRAM - interoperative FLUOROSCOPY TIME (if supplied): ( ) minutes/second TECHNIQUE: 36 interprocedural images were presented for interpretation. FINDINGS: Images demonstrate cannulization of the cystic duct stump. There is injection of contrast which fills the intra and extrahepatic biliary system. There is no stenosis filling defect or dilatation. There is free spillage of contrast into the duodenum. Please refer to the operative report for further details. RAD/Cholangiogram/ O R,Initial IMPRESSION: Interoperative cholangiogram. Electronically Signed: Drew Baxter DO at 19:02 EST Tel [phone], Service support ,
--- NOTE | 2018-04-08 14:55 | PCM.OPRPT ---
Report of Operation Date of Procedure: 04/08/18 Post-Operative Diagnosis: Acute cholecystitis, cholelithiasis Surgery/Procedure Performed:: Same boat ride operator: Ramona Napier Type of Anesthesia:: General/Supplemental Anesthesiologist: Gabriel Chávez Special Medications: Cefotetan 2 g IV x1 Specimen's removed: Gallbladder and stones Estimated Blood Loss (mL): <10 cc Fluids Replaced: 1000 cc Description of Procedure: Indications this is a 23 year-old female who developed abdominal pain/nausea/vomiting and on workup was found to have cholelithiasis with a normal common bile duct. Laparoscopic cholecystectomy was elected. Description procedure: The patient was placed on operating table in supine position. General Anesthesia was induced. A timeout was completed verifying correct patient, procedure, site, position, social, and special equipment prior to beginning procedure. An orogastric tube was placed. The abdomen was prepped and draped in usual sterile fashion. An incision was made in the natural skin line above the umbilicus. The fascia was elevated and incised. The peritoneum was elevated and incised. Entry into the peritoneum was confirmed visually and no bowel was noted in the vicinity of the incision. Barfield trocar was placed. The abdomen was insufflated with carbon dioxide to a pressure of 12-15 mmHg. Patient tolerated insufflation well. The laparoscope was then inserted and abdomen inspected. No injuries from initial trocar placement were noted. Additional trochars were then inserted in the following locations 5 mm trocar in the epigastrium and 2 more 5 mm trochars along the right costal margin. The abdomen was inspected no abnormalities were found. The table is placed in reverse Trendelenburg position with the right side up. The adhesions between the gallbladder and omentum were lysed sharply. The dome of the gallbladder was grasped with atraumatic grasper passed through the lateral port and retracted over the dome of the liver. Infundibulum was then grasped with atraumatic grasper through the midclavicular port and retracted to the right lower quadrant. This maneuver exposed Calot's triangle. The peritoneum overlying the gallbladder infundibulum was then incised and cystic duct and artery identified and circumferentially dissected. The Juarez catheter was used for cholangiograms. Angiograms did show good flow into the duodenum with no filling defect as well as no filling defects at the bifurcation of the bile ducts. The cystic duct and artery were then doubly clipped and divided close to the gallbladder. The gallbladder then dissected from its peritoneal attachments by electrocautery. Hemostasis was checked and the gallbladder and contained stones were removed using the endoscopic retrieval bag through the umbilical port. The gallbladder is passed off table as specimen. The gallbladder fossa was copiously irrigated with saline and hemostasis obtained. There is no evidence of bleeding from the gallbladder fossa or cystic artery leakage of bile from the cystic duct stump. Secondary trochars removed under direct vision. No bleeding was noted the trocar sites. The laparoscope was withdrawn and umbilical trocar removed. The abdomen was allowed to collapse. The fascia of the 12 mm trocar was closed with a [id number] 0 Vicryl suture. The skin was closed with sutures of 4-0 Monocryl and Steri-Strips. The orogastric tube was removed and the patient was extubated. The patient tolerated procedure well and was taken to the postanesthesia care unit in stable condition. - Complications none
--- NOTE | 2018-04-08 14:58 | OP.PCM_ITS ---
Report of Operation Date of Procedure: 04/08/18 Post-Operative Diagnosis: Acute cholecystitis, cholelithiasis Surgery/Procedure Performed:: Same group exercise class instructor: Ramona Napier Type of Anesthesia:: General/Supplemental Anesthesiologist: Gabriel Chávez Special Medications: Cefotetan 2 g IV x1 Specimen's removed: Gallbladder and stones Estimated Blood Loss (mL): <10 cc Fluids Replaced: 1000 cc Description of Procedure: Indications this is a 23 year-old female who developed abdominal pain/nause a/vomiting and on workup was found to have cholelithiasis with a normal common bile duct. Laparoscopic cholecystectomy was elected. Description procedure: The patient was placed on operating table in supine position. General Anesthesia was induced. A timeout was completed verifying correct patient, procedure, site, position, social, and special equipment prior to beginning procedure. An orogastric tube was placed. The abdomen was prepped and draped in usual sterile fashion. An incision was made in the natural skin line above the umbilicus. The fascia was elevated and incised. The peritoneum was elevated and incised. Entry into the peritoneum was confirmed visually and no bowel was noted in the vicinity of the incision. Barfield trocar was placed. The abdomen was insufflated with carbon dioxide to a pressure of 12-15 mmHg. Patient tolerated insufflation well. The laparoscope was then inserted and abdomen inspected. No injuries from initial trocar placement were noted. Add itional trochars were then inserted in the following locations 5 mm trocar in the epigastrium and 2 more 5 mm trochars along the right costal margin. The abdomen was inspected no abnormalities were found. The table is placed in reverse Trendelenburg position with the right side up. The adhesions between the gallbladder and omentum were lysed sharply. The dome of the gallbladder was grasped with atraumatic grasper passed through the lateral port and retracted over the dome of the liver. Infundibulum was then grasped with atraumatic grasper through the midclavicular port and retracted to the right lower quadrant. This maneuver exposed Calot's triangle. The peritoneum overlying the gallbladder infundibulum was then incised and cystic duct and artery identified and circumferentially dissected. The Juarez catheter was used for cholangiograms. Angiograms did show good flow into the duodenum with no filling defect as well as no filling defects at the bifurcation of the bile ducts. The cystic duct and artery were then doubly clipped and divided close to the gallbladder. The gallbladder then dissected from its peritoneal attachments by electrocautery. Hemostasis was checked and the gallbladder and contained stones were removed using the endoscopic retrieval bag through the umbilical port. The gallbladder is passed off table as specimen. The gallbladder fossa was copiously irrigated with saline and hemostasis obtained. There is no evidence of bleeding from the gallbladder fossa or cystic artery leakage of bile from the cystic duct stump. Secondary trochars removed under direct vision. No bleeding was noted the trocar sites. The laparoscope was withdrawn and umbilical trocar removed. The abdomen was allowed to collapse. The fascia of the 12 mm trocar was closed with a [id number] 0 Vicryl suture. The skin was closed with sutures of 4-0 Monocryl and Steri-Strips. The orogastric tube was removed and the patient was extubated. The patient tolerated procedure well and was taken to the postanesthesia care unit in stable condition. - Complications none
[2018-04-08] MEDS: Bupivacaine 0.5% PF 10 ML VIAL (15:00)
[2018-04-08] MEDS: HYDROcodone Bitartrate/Apap 5/325 Tablet PO (17:15)
== END 2018-04-08 18:04 | disposition home or self-care (01) ==
LOC: SDC 10:52 → AC 10:53
PROVIDERS: Family Provider Family Medicine; PCP Family Medicine; Referring Provider Surgery; Visit Provider Surgery
PROC: (CPT 47610; principal; 2018-04-08 12:35)
DX: K80.12 Calculus of gallbladder with acute and chronic cholecystitis without obstruction (principal); K21.9 Gastro-esophageal reflux disease without esophagitis; F41.9 Anxiety disorder, unspecified; Z79.899 Other long term (current) drug therapy
CPT/HCPCS: 47562; 74300; 76000; 80076; 81025; 88304; 93005; J7120; J2405

== ENCOUNTER → 2020-03-21 16:10 | Outpatient (CLI) | payer BC, SELFPAY ==
[2018-04-08 11:18] VITALS: BMI 38.3
--- NOTE | 2020-03-21 16:16 | RAD_ITS ---
STUDY: X-RAY - ABDOMEN/PELVIS REASON FOR EXAM: Female, 25 years old. diarrhea TECHNIQUE: AP supine and upright views of the abdomen and pelvis. COMPARISON: None. FINDINGS: Normal visualized lung bases. There is an unremarkable bowel gas pattern. There is no demonstrated free abdominal air. The visualized liver, spleen and kidneys are grossly normal in size and morphology. Normal soft tissue structures. Normal visualized osseous structures. RAD/Abd Inc Decub and/or Erect IMPRESSION: Normal x-ray examination of the abdomen and pelvis. Electronically Signed: Ron Magana MD at 16:37 EST Tel , Service support ,
[2020-03-21 17:51] LABS: Absolute Lymphocyte Count 2.71 X10^3/uL (0.83-4.51); Basophil# 0.04 X10^3/uL; Basophil% 0.4 % (0-1); Eosinophil# 0.07 X10^3/uL; Eosinophils% 0.7 % (0-5); Hematocrit 40.9 % (37-47); Hemoglobin 13.5 g/dL (12.0-15.0); Lymphocyte # 2.71 X10^3/ul (4.0); Mean Corpuscular Hgb 29.9 pg (27.0-32.0); Mean Corpuscular Volume 90.7 fL (81-99); Mean Platelet Vol. 9.8 fl (6.2-12.0); Monocyte# 0.85 X10^3/uL; Monocyte% 8.8 % (0-10); NRBC Flagged by Analyzer 0 % (0-5); Neutrophil # 5.98 X10^3/uL (2.7-7.7); Neutrophil % 61.9 % (47-70); Platelet Count 312 K/mm3 (150-450); RBC Distribution Width CV 12.7 % (11.6-14.6); RBC Distribution Width SD 41.8 fl (35.1-43.9); Red Blood Count 4.51 M/mm3 (4.2-5.4); White Blood Count 9.7 K/mm3 (4.4-11.0)
[2020-03-21 18:21] LABS: ALB/GLOB Ratio 0.9 RATIO (0.9-2.4); AST(SGOT) 14 U/L (15-37); Alanine Aminotransfer ALT/SGPT 27 U/L (13-56); Albumin, Serum 3.5 g/dL (3.2-5.0); Alkaline Phosphatase 73 U/L (45-117); Anion Gap 5 (5-15); BUN 14 mg/dL (7-18); BUN/Creat Ratio 15.7 RATIO (10-20); Calcium,Total 8.3 mg/dL (8.5-10.1); Chloride 107 mmol/L (98-107); Creatinine, Serum 0.89 mg/dL (0.55-1.02); EST Glomerular Filtration Rate 82 mL/min (>60); Est Glom Filt Rate - Afr Amer 99 mL/min (>60); Globulin 3.7 g/dL (2.2-4.2); Glucose 85 mg/dL (74-106); Potassium 3.8 mmol/L (3.5-5.1); Protein, Total 7.2 g/dL (6.4-8.2); Sodium Level 137 mmol/L (136-145); Thyroid Stim Hormone (TSH) 3.46 uIU/mL (0.358-3.74)
[2020-03-21 18:58] LABS: Erythrocyte Sedimentation Rate 11 mm/hr (0-20)
== END ==
PROVIDERS: PCP Family Medicine; Referring Provider Family Medicine; Visit Provider Family Medicine
DX: R19.7 Diarrhea, unspecified (principal)
CPT/HCPCS: 36415; 74019; 80053; 84443; 85025; 85652

== ENCOUNTER → 2020-03-30 14:08 | Outpatient (CLI) | payer BC, SELFPAY ==
[2018-04-08 11:18] VITALS: BMI 38.3
[2020-04-05 21:41] LABS: Fats, Neutral Normal (.); Fats, Total Normal (.)
== END ==
PROVIDERS: PCP Family Medicine; Referring Provider Family Medicine; Visit Provider Family Medicine
DX: R19.7 Diarrhea, unspecified (principal)
CPT/HCPCS: 82274; 82705; 83630; 87177; 87209; 87506

== ENCOUNTER 2020-07-27 09:30 | Outpatient (RCR) | payer OTHER, SELFPAY ==
[2020-06-08 10:22] VITALS: BMI 43.5
[2020-06-25 09:49] VITALS: BMI 42.7
--- NOTE | 2020-06-28 09:10 | HP.PTEVAL_ITS ---
Patient's Visit Information KATHY SOUZA is a 25 year old F referred to Physical Therapy by DAPHNE Heaton with a diagnosis of L shoulder strain. Date of Evaluation: 06/26/20 Physical Therapist: Wyatt Lentz DPT - Visit Plan Frequency: 3x /Week Duration: 4-6 Weeks Plan: Start with some light STM to L UT and L levator scapulea, L UT and L levator scap stretching. PRogressing to scapular and periscapular strengthening. May use US/IFC if needed. - Subjective Pt. is here today for her initial evaluation with diagnosis of L shoulder strain. Pt. reports having increased pain since 05/11/20. She reports pain at L anterior shoulder, clavicle wrapping around to L shoulder blade region. Pt. reports overall decreased pain since being on light duty, but started full duty again last night. Pt. works on [employer]. Her job has her reaching out to side with [employer] and bringing ~5# objects to work in front of her, frequently throughout the day. No falls noted, no specific mech of injury noted. She has been sleeping okay recently, but was having difficulty 2 weeks ago (both sleeping on her R and L sides). She reports occassional tingling in her L triceps region. Pt. is hopeful to reduce her symptoms in order to get back to all work and recreational activities without limitations. - Pain L UE Pain Intensity (Out of 10): 2 Pain Intensity Range: 0, 7 - Objective POSTURE: Pt. has rounded shoulders bilaterally. FH posture and increased thoracic kyphosis. PALPATION: Pt. has tenderness at L levator scapulea, L SCM, L UT and L pectoralis minor. NEURO: normal DTR and normal sensation throughout BUEs. ROM: R shoulder- full throughout without increase in symptoms. L shoulder- flexion 175deg increase in comparable sign, abd 175deg mild symptoms, ER C4 increase NW, IR L4 increase NW. PROM: full ROM, but no increase in symptoms. CERVICAL SPINE: full, mild pain at C6/C7 range, but no shoulder pain. MMT: RUE 5/5 throughout. LUE- 4/5 throughout, increased pain with flexion, abd motions. - Goals Goal 1:: LTG: Pt. to be I with HEP for postural and scapular strengthening. Goal Time Frame: 4-6 Weeks Goal 2:: STG: Pt. to sleep throughout the night without increase in symptoms. Goal Time Frame: 2-4 Weeks Goal 3:: STG: Pt. able to demonstrate improved posture throughout therapy session, indicating increased posture awareness. Goal Time Frame: 2-4 Weeks Goal 4:: LTG: Pt. able to complete daily work activities without increase in symptoms. Goal Time Frame: 4-6 Weeks Goal 5:: STG: Pt. to have decreased tenderness to LUT and L levator scapulea. Goal Time Frame: 2-4 Weeks Goal 6:: LTG: Pt. to have full strength throughout scapular and periscapular muscle of LUE. Goal Time Frame: 4-6 Weeks - Rehabilitation Potential Physical Therapy Diagnosis: Pt. has signs and symptoms consistent with L shoulder strain. Pt. has increased pain with all overhead movements and across body movements. I do not see any signs RTC tear or labral issues. Pt. has some mild impingment signs. I would like to work on active ROM, some soft tissue management progressing back to strengthening as tolerated. Rehabilitation Potential: Excellent - Anticipated Interventions Patient/Client Instruction: Educate patient on: Condition, Plan of Care, Risk Factors, Benefits of Fitness Program For the Purpose of:: To improve decision making, To facilitate caregiver knowledge, To improve self management, To prevent re-injury, To improve ability to perform tasks related to life management, To improve tolerance to ADL's Therapeutic Exercise to Include: Strength training, Power training, Endurance training, Flexibilty training, Passive ROM, Active ROM, Brice Exercises, Scapular Strength/Stabilization For the Purpose of:: To decrease pain, To decrease swelling/inflammation, To increase ROM, To improve nutrient delivery to tissue, To increase oxygenation perfusion Manual Therapy Techniques to Include: Mobilization, Passive ROM, Functional dry needling, Soft tissue mobilization For the Purpose of:: To decrease pain, To decrease swelling/inflammation, To increase ROM, To improve nutrient delivery to tissue, To increase oxygenation perfusion, To improve muscle performance and motor function IF ES: Yes Cryotherapy (ice pack, ice massage): Yes Thermo therapy (hot pack): Yes Ultrasound (thermal/non thermal): Yes For the Purpose of:: To decrease pain, To decrease swelling/inflammation, To increase ROM, To improve nutrient delivery to tissue, To increase oxygenation perfusion, To improve muscle performance and motor function, To improve ability to perform ADL's Thank you for the opportunity to evaluate your patient. For Medicare and Medicare HMO plans, please review the plan of care and approve it. It will need to be FAXED BACK to us at [phone] for Medicare purposes. For Medicare only, by signing this I certify the plan of care. Please let me know if there are questions or concerns regarding this plan of care. Physician Signature: Date:
--- NOTE | 2020-07-27 10:06 | HP.PTREVAL ---
DAPHNE Heaton, It has been my pleasure to treat KATHY SOUZA over the last 12 visits for L shoulder strain. Please see the progress note below for an update on the physical therapy plan of care! Subjective: Pt. reports that she is doing better pain barnett, no much pain today. She did have some weakness the past few days in her arms. She did do a different job theose days, which may have conitributed. Pt. has not had any N/T in her arms, just her UT region. Objective/Function: ROM: cervical ROM normal full ROM, mild tingling in B lower cervical spine region bilateraly. No UE N/T. MMT: Pt. has good strength throughout, UEs. No myotomal weakness noted. Pt. does have dificulty maintaining good posture through her thoracic and cervical spine. She did have reduced symptoms with improved posture. Negative spurlings testing for radiculopathy of her cervical spine. NO changes with distraction testing. She did report some tingling with L UT stretching, reduced with cessation. Her testing today did not suggest large nerve involvement. I am not sure why she is having her reports of intermittent tingling. She did report having B UE weakness the other day, but today seemed to check out fine. I gave her some thoracic extension mobs (self into towel), pec stretching, and mid trap strengthening to add to her HEP. Pt. to follow up with physician later today. Plan Plan: Pt. to follow up with physician at this point in time. Goals Goal 1:: LTG: Pt. to be I with HEP for postural and scapular strengthening. Goal Time Frame: 4-6 Weeks Goal Progress: Progressing Goal 2:: STG: Pt. to sleep throughout the night without increase in symptoms. Goal Time Frame: 2-4 Weeks Goal Progress: Goal Met Goal 3:: STG: Pt. able to demonstrate improved posture throughout therapy session, indicating increased posture awareness. Goal Time Frame: 2-4 Weeks Goal Progress: Progressing Goal 4:: LTG: Pt. able to complete daily work activities without increase in symptoms. Goal Time Frame: 4-6 Weeks Goal Progress: Progressing Goal 5:: STG: Pt. to have decreased tenderness to LUT and L levator scapulea. Goal Time Frame: 2-4 Weeks Goal Progress: Progressing Goal 6:: LTG: Pt. to have full strength throughout scapular and periscapular muscle of LUE. Goal Time Frame: 4-6 Weeks Goal Progress: Progressing Anticipated Interventions Patient/Client Instruction: Educate patient on: Condition, Plan of Care, Risk Factors, Benefits of Fitness Program For the Purpose of:: To improve decision making, To facilitate caregiver knowledge, To improve self management, To prevent re-injury, To improve ability to perform tasks related to life management, To improve tolerance to ADL's Therapeutic Exercise to Include: Strength training, Power training, Endurance training, Flexibilty training, Passive ROM, Active ROM, Brice Exercises, Scapular Strength/Stabilization For the Purpose of:: To decrease pain, To decrease swelling/inflammation, To increase ROM, To improve nutrient delivery to tissue, To increase oxygenation perfusion Manual Therapy Techniques to Include: Mobilization, Passive ROM, Functional dry needling, Soft tissue mobilization For the Purpose of:: To decrease pain, To decrease swelling/inflammation, To increase ROM, To improve nutrient delivery to tissue, To increase oxygenation perfusion, To improve muscle performance and motor function IF ES: Yes Cryotherapy (ice pack, ice massage): Yes Thermo therapy (hot pack): Yes Ultrasound (thermal/non thermal): Yes For the Purpose of:: To decrease pain, To decrease swelling/inflammation, To increase ROM, To improve nutrient delivery to tissue, To increase oxygenation perfusion, To improve muscle performance and motor function, To improve ability to perform ADL's Please do not hesitate to contact me at [phone] by phone or if you have questions or concerns regarding this new plan of care! Sincerely, Wyatt Lentz DPT
--- NOTE | 2020-09-19 11:17 | HP.PT.NRP ---
KATHY ALVARADO BECKY SOUZA was seen in my office for initial evaluation on 06/26/20. The following Plan of Care was established for this patient: Initial Frequency: 3x /Week Initial Duration: 4-6 Weeks Patient/Client Instruction: Educate patient on: Condition, Plan of Care, Risk Factors, Benefits of Fitness Program For the Purpose of:: To improve decision making, To facilitate caregiver knowledge, To improve self management, To prevent re-injury, To improve ability to perform tasks related to life management, To improve tolerance to ADL's Therapeutic Exercise to Include: Strength training, Power training, Endurance training, Flexibilty training, Passive ROM, Active ROM, Brice Exercises, Scapular Strength/Stabilization For the Purpose of:: To decrease pain, To decrease swelling/inflammation, To increase ROM, To improve nutrient delivery to tissue, To increase oxygenation perfusion Manual Therapy Techniques to Include: Mobilization, Passive ROM, Functional dry needling, Soft tissue mobilization For the Purpose of:: To decrease pain, To decrease swelling/inflammation, To increase ROM, To improve nutrient delivery to tissue, To increase oxygenation perfusion, To improve muscle performance and motor function IF ES: Yes Cryotherapy (ice pack, ice massage): Yes Thermo therapy (hot pack): Yes Ultrasound (thermal/non thermal): Yes For the Purpose of:: To decrease pain, To decrease swelling/inflammation, To increase ROM, To improve nutrient delivery to tissue, To increase oxygenation perfusion, To improve muscle performance and motor function, To improve ability to perform ADL's This patient was last seen in our office 07/27/20. Pertinent comments regarding their Physical therapy will appear below: Pt. was seen in PT for her shoulder and neck pain. Pt. at her last visit was doing very well. She had follow up with her physician who released her back to all work duties. She has not been seen in ~6-7 weeks. She will be DC from PT at this point in time. At this point I will be discontinuing this patient from physical therapy. I would be happy to see this patient again in the future if found appropriate by the physician. Thank you! NICOLA HaydenT
== END 2020-07-27 19:00 | disposition home or self-care (01) ==
LOC: PT 09:30
PROVIDERS: PCP Family Medicine; Referring Provider Physician Assistant Surgical; Visit Provider Physician Assistant Surgical
DX: S46.912D Strain of unspecified muscle, fascia and tendon at shoulder and upper arm level, left arm, subsequent encounter (principal)
CPT/HCPCS: 97110; 97140; 97161; 97164

== ENCOUNTER 2022-08-21 15:07 | Emergency (ER) | payer MEDICAID, SELFPAY ==
[2022-08-21 15:07] VITALS: BP 117/94; PULSE 68; RESP 18; TEMP 36.5; O2SAT 100; BMI 40.8
--- NOTE | 2022-08-21 15:40 | EX.ED.DYSGE1 ---
HPI History of Present Illness Chief Complaint: Syncope Narrative Narrative: 27-year-old female presenting with headache and mild nausea. She has a history of syncope in the past. She states that last night someone was pushing on a knot on her shoulder blade and she felt herself going out. She states she had a sensation before but usually she can tell she is going out. This happened so quickly she fainted and fell hitting her head on the floor. She states her friend told her her eyes were rolling back in her head. Her head was a little bit shaky but there was no tonic-clonic activity patient did not bite her tongue. Patient did not lose her bladder or bowel. When the patient woke up she knew exactly where she was and what it happened. She states has been a little bit nauseous and lightheaded since. No visual complaints. Patient states that she was otherwise healthy prior to this. She did not have any chest pain or shortness of breath before or after the event. Patient states that she has been worked up for fainting episodes in the past and nobody is ever told her why she has them. No history of epilepsy. [facility] Medical History (Updated 08/21/22 @ 15:52 by Kanika More) Abdominal pain Acid reflux Anxiety Anxiety Cholelithiasis Constipation Depression Depression Diarrhea Fatigue Nausea RUQ pain Sleep apnea Home Medications escitalopram oxalate 10 mg tablet 10 mg PO DAILY 03/30/18 [History Last Taken Unknown] pantoprazole 40 mg tablet,delayed release (Protonix) 40 mg PO DAILY #30 tabs 04/02/18 [Rx Last Taken 04/08/18 07:30 40 MG] etonogestrel 68 mg subdermal implant 68 mg BC DAILY 04/07/18 [History Last Taken Unknown] cyclobenzaprine 10 mg tablet 10 mg PO TID PRN Muscle Spasm #20 TABLETS 08/21/22 [Rx Last Taken Unknown] ondansetron 4 mg disintegrating tablet 4 mg PO Q8H PRN PRN Nausea #10 tabs 08/21/22 [Rx Last Taken Unknown] Allergy/AdvReac Type Severity Reaction Status Date / Time No Known Allergies Allergy Verified 07/06/20 09:53 Family History Grandmother Breast cancer Surgical History History of carpal tunnel surgery right carpal tunnel S/P laparoscopic cholecystectomy (~04/08/18) Social History Smoking Status: Never smoker second hand exposure: No alcohol intake: current alcohol intake frequency: a few times a month substance use type: does not use caffeine: Yes EXAM Physical Exam Const Vital Signs: 08/21/22 15:07 08/21/22 15:50 08/21/22 15:51 Temperature 97.7 F L Temperature Source Temporal Pulse Rate 68 Pulse Rate [Lying] Pulse Rate [Sitting (for 1 minute prior to obtaining)] Pulse Rate [Standing (for 1 minute prior to obtaining)] Respiratory Rate 18 Respiratory Effort Normal Respiratory Pattern Normal Blood Pressure 117/94 H Blood Pressure [Lying] Blood Pressure [Sitting (for 1 minute prior to obtaining)] Blood Pressure [Standing (for 1 minute prior to obtaining)] Blood Pressure Mean 101 Blood Pressure Mean [Lying] Blood Pressure Mean [Sitting (for 1 minute prior to obtaining)] Blood Pressure Mean [Standing (for 1 minute prior to obtaining)] Pulse Ox 100 Oxygen Delivery Method Room Air Room Air 08/21/22 17:09 08/21/22 19:12 08/21/22 19:24 Temperature Temperature Source Pulse Rate 71 64 Pulse Rate [Lying] 57 L Pulse Rate [Sitting (for 1 minute prior to obtaining)] 65 Pulse Rate [Standing (for 1 minute prior to obtaining)] 83 Respiratory Rate 15 18 Respiratory Effort Respiratory Pattern Blood Pressure 134/66 H 93/66 Blood Pressure [Lying] 110/66 Blood Pressure [Sitting (for 1 minute prior to obtaining)] 125/70 H Blood Pressure [Standing (for 1 minute prior to obtaining)] 124/73 H Blood Pressure Mean 88 Blood Pressure Mean [Lying] 80 Blood Pressure Mean [Sitting (for 1 minute prior to obtaining)] 88 Blood Pressure Mean [Standing (for 1 minute prior to obtaining)] 90 Pulse Ox 98 100 Oxygen Delivery Method Room Air Positive well nourished General Appearance ED: NAD HEENT Reports moist mucous membranes Eyes PERRL and EOMs intact bilaterally Neck no lymphadenopathy Chest Wall inspection of chest normal Resp normal respiratory effort and clear to auscultation bilaterally Auscultation: Negative for rales, rhonchi or wheezes Cardio regular rate and regular rhythm Neuro oriented x3, CN's II-XII intact bilaterally and no sensory deficits noted Sensorium / Orientation: alert and orientation impaired Motor Exam: strength 5/5 throughout Psych mental status grossly normal Skin no rashes or lesions noted and no wounds MDM MDM MDM Narrative Medical decision making narrative: 19-year-old female with syncope happened after she was getting tender spot on her back rubs. She fell hitting her head and lost consciousness. What she is describing to be does not sound of seizure activity. No loss of bowel or bladder. Did not bite her tongue. No tonic-clonic movement. There was some reported head shaking and her eyes were back in her head. She has a history of syncope in the past but states has been worked up and they did not find a source. Patient did hit her head and I believe she has concussion symptoms. Differential includes dehydration, electrolyte abnormalities, arrhythmia, ACS, concussion, intracranial hemorrhage. CBC to assess white blood cell count, hemoglobin, platelets, differential. BMP to assess renal function, electrolytes, glucose, anion gap. High-sensitivity troponins, BNP, EKG and chest x-ray will be obtained to rule out cardiac component. Orthostatic vital signs were obtained and are normal. CBC and BMP unremarkable. High-sensitivity troponin less than 3. BNP within normal limits. CT of the brain was obtained and there is no evidence of intracranial abnormality. At this point patient feels better I did treat her nausea with Zofran. She also complains of the muscle spasm in her right thoracic region which she was treated with muscle relaxer and she feels better with this as well. Patient was given prescription for Zofran, and cyclobenzaprine. Follow-up with her PCP to ensure resolution. Impression: 1. Syncope 2. Concussion 3. Thoracic strain Lab Data Labs: Laboratory Results - last 24 hr 08/21/22 08/21/22 08/21/22 15:45 15:45 15:45 WBC 8.2 RBC 4.61 Hgb 13.7 Hct 42.6 MCV 92.4 MCH 29.7 MCHC 32.2 RDW Std Deviation 43.8 RDW Coeff of Jak 13.0 Plt Count 306 MPV 9.7 Immature Gran % (Auto) 0.200 Neut % (Auto) 62.6 Lymph % (Auto) 28.4 Fannin % (Auto) 7.2 Eos % (Auto) 1.0 Baso % (Auto) 0.6 Absolute Neuts (auto) 5.1 Absolute Lymphs (auto) 2.33 Nucleated RBC % 0 Sodium 140 Potassium 4.1 Chloride 107 Carbon Dioxide 27.0 Anion Gap 6 BUN 12 Creatinine 0.79 Estim Creat Clear Calc 76.15 Est GFR (MDRD) Af Amer 111 Est GFR (MDRD) Non-Af 92 BUN/Creatinine Ratio 15.2 Glucose 90 Calcium 8.0 L Troponin I High Sens < 3 L B-Natriuretic Peptide 84.0 Radiography Diagnostic Testing: Clinical Impression(s) from Imaging Studies Chest X-Ray 08/21/22 15:50 IMPRESSION: No radiographic evidence of acute cardiopulmonary disease. Electronically Signed: Aleks Ochoa MD at 16:30 EDT , Brain CT 08/21/22 18:23 IMPRESSION: Negative head/brain CT without intravenous contrast. Electronically Signed: Aleks Ochoa MD at 19:07 EDT , Discharge Plan Triage Chief Complaint: Syncope ED Provider: Zeeshan Peraza Dx/Rx/DC Orders Prescriptions: New ondansetron 4 mg tablet,disintegrating 4 mg PO Q8H PRN PRN (Reason: Nausea) Qty: 10 0RF cyclobenzaprine 10 mg tablet 10 mg PO TID PRN (Reason: Muscle Spasm) Qty: 20 0RF No Action pantoprazole [Protonix] 40 mg tablet,delayed release (DR/EC) 40 mg PO DAILY Qty: 30 1RF escitalopram oxalate 10 MG tablet 10 mg PO DAILY etonogestrel 68 MG implant 68 mg BC DAILY Primary Care Provider: Bev Vizcaino NP Referrals: Haja Crow MD [Med Staff - [employer]] - Disposition Disposition: Home, Self Care
[2022-08-21] MEDS: Ondansetron 4 MG/2 ML Vial IV (15:49)
--- NOTE | 2022-08-21 15:50 | RAD_ITS ---
EXAM: XR CHEST, 1 VIEW CLINICAL INDICATION: chest pain TECHNIQUE: Frontal view of the chest. COMPARISON: 02.10.16 FINDINGS: LUNGS AND PLEURAL SPACES: Unremarkable. No consolidation or edema. No pneumothorax. No effusion. HEART: Unremarkable. Cardiac silhouette not enlarged. MEDIASTINUM: Central airways and mediastinal contour are unremarkable. BONES/JOINTS: Unremarkable. SOFT TISSUES: Unremarkable. RAD/Chest 1 View (Portable) IMPRESSION: No radiographic evidence of acute cardiopulmonary disease. Electronically Signed: Aleks Ochoa MD at 16:30 EDT ,
[2022-08-21 16:11] LABS: Absolute Lymphocyte Count 2.33 X10^3/uL (0.83-4.51); Absolute Neutrophil Count 5.1 X10^3/uL (2.0-7.7); Basophil# 0.05 X10^3/uL; Basophil% 0.6 % (0-1); Eosinophil# 0.08 X10^3/uL; Hematocrit 42.6 % (37-47); Hemoglobin 13.7 g/dL (12.0-15.0); Lymphocyte # 2.33 X10^3/ul (0.83-4.51); Lymphocyte % 28.4 % (19-41); Mean Corp Hgb Conc 32.2 g/dL (32-36); Mean Corpuscular Hgb 29.7 pg (27.0-32.0); Mean Corpuscular Volume 92.4 fL (81-99); Mean Platelet Vol. 9.7 fl (6.2-12.0); Monocyte# 0.59 X10^3/uL; Monocyte% 7.2 % (0-10); NRBC Flagged by Analyzer 0 % (0-5); Neutrophil # 5.14 X10^3/uL (2.7-7.7); Neutrophil % 62.6 % (47-70); Platelet Count 306 K/mm3 (150-450); RBC Distribution Width SD 43.8 fl (35.1-43.9); Red Blood Count 4.61 M/mm3 (4.2-5.4); White Blood Count 8.2 K/mm3 (4.4-11.0)
[2022-08-21 17:02] LABS: Anion Gap 6 (5-15); BUN 12 mg/dL (7-18); BUN/Creat Ratio 15.2 RATIO (10-20); Chloride 107 mmol/L (98-107); Creatinine, Serum 0.79 mg/dL (0.55-1.02); EST Glomerular Filtration Rate 92 mL/min (>60); Est Glom Filt Rate - Afr Amer 111 mL/min (>60); Estimated Creatinine Clearance 76.15 ml/min; Glucose 90 mg/dL (74-106); Potassium 4.1 mmol/L (3.5-5.1); Sodium Level 140 mmol/L (136-145); Troponin-I HS < 3 pg/mL (3.0-54.0)
[2022-08-21 17:09] VITALS: BP 110/66; BP 124/73; BP 125/70; PULSE 57; PULSE 65; PULSE 83
--- NOTE | 2022-08-21 18:23 | CT_ITS ---
EXAM: CT HEAD WITHOUT INTRAVENOUS CONTRAST CLINICAL INDICATION: head injury TECHNIQUE: Multiple axial images were obtained of the head without intravenous contrast. This CT exam was performed using one or more of the following dose reduction techniques: automated exposure control, adjustment of the mA and/or kV according to patient size, and/or use of iterative reconstruction technique. RADIATION DOSE: CTDIvol = 44.99 mGy, DLP = 745.49 mGy-cm COMPARISON: No relevant prior studies available. FINDINGS: BRAIN AND EXTRA-AXIAL SPACES: Unremarkable. No intra- or extra-axial hemorrhage. No evidence of acute infarct. No intracranial mass or mass effect. There is preservation of the sylvester/white matter interface. Posterior fossa structures are unremarkable. Ventricles are appropriate for age. No hydrocephalus. Basal cisterns are patent. BONES/JOINTS: Unremarkable. No discrete lytic or blastic abnormalities. SINUSES: Unremarkable as visualized. Clear. MASTOID AIR CELLS: Unremarkable. Clear. ORBITS: Visualized globes, extraocular muscles, optic nerves and retrobulbar fat appear unremarkable. CT/Brain/Head without Contrast IMPRESSION: Negative head/brain CT without intravenous contrast. Electronically Signed: Aleks Ochoa MD at 19:07 EDT ,
[2022-08-21] MEDS: Orphenadrine 100 MG Tablet PO (18:32)
[2022-08-21 19:12] VITALS: BP 134/66; PULSE 71; RESP 15; O2SAT 98
[2022-08-21 19:24] VITALS: BP 93/66; PULSE 64; RESP 18; O2SAT 100
[2022-08-21 19:38] VITALS: RESP 18
== END 2022-08-21 19:39 | disposition home or self-care (01) ==
PROVIDERS: Emergency Provider Student in an Organized Health Care Education/Training Program; PCP Nurse Practitioner Primary Care; Visit Provider Student in an Organized Health Care Education/Training Program
DX: S06.0X0A Concussion without loss of consciousness, initial encounter (principal); S29.019A Strain of muscle and tendon of unspecified wall of thorax, initial encounter; G47.30 Sleep apnea, unspecified; X58.XXXA Exposure to other specified factors, initial encounter
CPT/HCPCS: 70450; 71045; 80048; 83880; 84484; 85025; 93005; 96374; 99285; A4216; J2405

== ENCOUNTER 2022-11-22 17:05 | Emergency (ER) | payer MEDICAID, SELFPAY ==
[2022-11-22 17:05] VITALS: BP 148/98; PULSE 97; RESP 18; TEMP 36.4; O2SAT 99; BMI 41.6
--- NOTE | 2022-11-22 17:27 | EX.ED.GENINJ ---
HPI <DAPHNE Arrieta - Last Filed: 11/22/22 17:59> History of Present Illness Chief Complaint: Fall Narrative Narrative: Patient presenting with pain to her left foot after a piece of drywall came falling off the wall and she tried to catch it to stop it from hitting her son but it ultimately fell on both her sons foot and her left foot. She is able to walk but it is painful. She denies any other injury. She did not hit her head. PFSH <DAPHNE Arrieta - Last Filed: 11/22/22 17:59> PFSH Medical History Abdominal pain Acid reflux Anxiety Anxiety Cholelithiasis Constipation Depression Depression Diarrhea Fatigue Nausea RUQ pain Sleep apnea Home Medications escitalopram oxalate 10 mg tablet 10 mg PO DAILY 03/30/18 [History Last Taken Unknown] pantoprazole 40 mg tablet,delayed release (Protonix) 40 mg PO DAILY #30 tabs 04/02/18 [Rx Last Taken 04/08/18 07:30 40 MG] etonogestrel 68 mg subdermal implant 68 mg BC DAILY 04/07/18 [History Last Taken Unknown] cyclobenzaprine 10 mg tablet 10 mg PO TID PRN Muscle Spasm #20 TABLETS 08/21/22 [Rx Last Taken Unknown] ondansetron 4 mg disintegrating tablet 4 mg PO Q8H PRN PRN Nausea #10 tabs 08/21/22 [Rx Last Taken Unknown] Allergy/AdvReac Type Severity Reaction Status Date / Time No Known Allergies Allergy Verified 11/22/22 17:05 Family History Grandmother Breast cancer Surgical History History of carpal tunnel surgery right carpal tunnel S/P laparoscopic cholecystectomy (~04/08/18) Social History Smoking Status: Never smoker second hand exposure: No alcohol intake: current alcohol intake frequency: a few times a month substance use type: does not use caffeine: Yes ROS <DAPHNE Arrieta - Last Filed: 11/22/22 17:59> ROS ED Constitutional Constitutional ED: Denies chills or fever(s) Cardiovascular Cardiovascular: Denies chest pain Respiratory/Chest Respiratory/Chest: Denies cough or dyspnea Gastrointestinal Gastrointestinal: Denies abdominal pain, nausea or vomiting Musculoskeletal Musculoskeletal: Reports arthralgias; Denies myalgias Integumentary Denies Abrasions Neurologic Neurologic: Denies paresthesias or weakness EXAM <DAPHNE Arrieta - Last Filed: 11/22/22 17:59> Physical Exam Const Vital Signs: 11/22/22 17:05 11/22/22 17:19 Temperature 97.6 F L Temperature Source Temporal Pulse Rate 97 Respiratory Rate 18 Respiratory Effort Normal Non-Labored Respiratory Depth Normal Respiratory Pattern Normal Blood Pressure 148/98 H Blood Pressure Mean 114 Pulse Ox 99 Oxygen Delivery Method Room Air Positive well nourished, well developed and no apparent distress General Appearance ED: well developed HEENT Reports normocephalic and head/scalp atraumatic Mouth ED: Yes moist mucous membranes normal Eyes PERRL and EOMs intact bilaterally Neck full ROM and supple Chest Wall inspection of chest normal Resp normal respiratory effort and clear to auscultation bilaterally Cardio regular rate and regular rhythm GI soft to palpation, non-tender, non-distended and no masses Back/Spine normal ROM and normal to inspection Extremity normal to inspection and full ROM Extremity Narrative: Pain to palpation to the dorsal aspect of the left foot without any ecchymosis or edema. Neuro oriented x3, CN's II-XII intact bilaterally, moves all extremities, no focal motor deficits and no sensory deficits noted Sensorium / Orientation: awake and alert Psych mental status grossly normal and thought process normal Skin no rashes or lesions noted and no wounds <Dr. Nir Watson MD - Last Filed: 11/22/22 18:13> Physical Exam Const Vital Signs: 11/22/22 17:05 11/22/22 17:19 Temperature 97.6 F L Temperature Source Temporal Pulse Rate 97 Respiratory Rate 18 Respiratory Effort Normal Non-Labored Respiratory Depth Normal Respiratory Pattern Normal Blood Pressure 148/98 H Blood Pressure Mean 114 Pulse Ox 99 Oxygen Delivery Method Room Air MDM <DAPHNE Arrieta - Last Filed: 11/22/22 17:59> MDM MDM Narrative Medical decision making narrative: Patient presenting due to pain to the left foot after a piece of drywall fell off the wall and landed on her left foot. She is able to ambulate but reports that it is painful. She has pain to the dorsal aspect of her left foot and is able to wiggle her toes and has full range of motion in her left ankle. X-ray of the left foot will be obtained to rule out fracture and is negative. Patient has been given RICE instructions and is to alternate Tylenol and ibuprofen for pain as needed. She will be discharged home in stable condition and is comfortable with plan. I have personally performed a face to face assessment of the patient and have reviewed the FERNANDO Note. I performed a substantive portion of the visit including all aspects of the following. My santos findings include: History is remarkable for significant pain after plaster fell onto her left foot. She localizes the pain to the medial dorsal aspect of the foot. She complains of pain with weightbearing distal first second and third metatarsal. She denies paresthesia, anesthesia medics. She is not on anticoagulant. Exam is patient has pain to palpation first second metatarsal. There is no obvious evidence of trauma. There is no pain the patient over the lateral medial malleolus. There is no pain ovation over the calcaneus. There is no pain ovation over the base of the fifth metatarsal. DP and PT pulse are palpable. Medical Decision Making x-ray was obtained. X-ray was independent reviewed interpreted by me as negative for fracture, subluxation or dislocation. X-rays were independent reviewed interpreted by me at 1737. Other additions or changes: Symptomatic treatment i.e. ice, elevation and anti-inflammatory if no contraindication. Radiography X-Ray: Read by ED Physician and Read by Radiologist Diagnostic Testing: Clinical Impression(s) from Imaging Studies Foot X-Ray 11/22/22 17:29 IMPRESSION: No evidence of acute fracture or dislocation. Electronically Signed: Edwin Mendoza DO at 17:40 EDT , <Dr. Nir Watson MD - Last Filed: 11/22/22 18:13> [facility] MDM Narrative Medical decision making narrative: Patient presenting due to pain to the left foot after a piece of drywall fell off the wall and landed on her left foot. She is able to ambulate but reports that it is painful. She has pain to the dorsal aspect of her left foot and is able to wiggle her toes and has full range of motion in her left ankle. X-ray of the left foot will be obtained to rule out fracture. I have personally performed a face to face assessment of the patient and have reviewed the FERNANDO Note. I performed a substantive portion of the visit including all aspects of the following. My santos findings include: History is remarkable for significant pain after plaster fell onto her left foot. She localizes the pain to the medial dorsal aspect of the foot. She complains of pain with weightbearing distal first second and third metatarsal. She denies paresthesia, anesthesia medics. She is not on anticoagulant. Exam is patient has pain to palpation first second metatarsal. There is no obvious evidence of trauma. There is no pain the patient over the lateral medial malleolus. There is no pain ovation over the calcaneus. There is no pain ovation over the base of the fifth metatarsal. DP and PT pulse are palpable. Medical Decision Making x-ray was obtained. X-ray was independent reviewed interpreted by me as negative for fracture, subluxation or dislocation. X-rays were independent reviewed interpreted by me at 1737. Other additions or changes: Symptomatic treatment i.e. ice, elevation and anti-inflammatory if no contraindication. Radiography Diagnostic Testing: Clinical Impression(s) from Imaging Studies Foot X-Ray 11/22/22 17:29 IMPRESSION: No evidence of acute fracture or dislocation. Electronically Signed: Edwin Mendoza DO at 17:40 EDT , Discharge Plan Triage Chief Complaint: Fall ED Midlevel Provider: Swetha Agudelo ED Provider: Nir Watson Dx/Rx/DC Orders Clinical Impression: Contusion of left foot, initial encounter Instructions: ED Foot Contusion Prescriptions: No Action pantoprazole [Protonix] 40 mg tablet,delayed release (DR/EC) 40 mg PO DAILY Qty: 30 1RF escitalopram oxalate 10 MG tablet 10 mg PO DAILY etonogestrel 68 MG implant 68 mg BC DAILY ondansetron 4 mg tablet,disintegrating 4 mg PO Q8H PRN PRN (Reason: Nausea) Qty: 10 0RF cyclobenzaprine 10 mg tablet 10 mg PO TID PRN (Reason: Muscle Spasm) Qty: 20 0RF Primary Care Provider: Bev Vizcaino NP Referrals: Bev Vizcaino NP, [employer] [Primary Care Provider] - 1 Week if not improving Activity Restrictions/Additional Instructions: 1. Apply ice 6-10 times a day 2. You may take either 4 ibuprofen tablets every 8 hours for the next 3 to 5 days or 2 Aleve tablets every 12 hours for the next 3 to 5 days. Disposition Disposition: Home, Self Care
--- NOTE | 2022-11-22 17:29 | RAD_ITS ---
STUDY: X-RAY - LEFT FOOT CLINICAL: Female, 27 years old. injury TECHNIQUE: 2 view(s) of the foot. COMPARISON: None. FINDINGS: Normal talus, calcaneus, and tarsal bones. Normal visualized subtalar, talonavicular, calcaneocuboid, tarsal and tarsometatarsal articulations. Normal metatarsi. Normal metatarsophalangeal joint of the great toe. Normal tibial and fibular sesamoid bones. Normal interphalangeal joint of the great toe. Normal phalanges of the great toe. Normal second through fifth metatarsophalangeal joints. Normal interphalangeal joints and phalanges of the lesser toes. The soft tissue structures are unremarkable. RAD/Foot 2 Views IMPRESSION: No evidence of acute fracture or dislocation. Electronically Signed: Edwin Mendoza DO at 17:40 EDT ,
== END 2022-11-22 19:24 | disposition home or self-care (01) ==
PROVIDERS: Emergency Provider Emergency Medicine; PCP Nurse Practitioner Primary Care; Visit Provider Emergency Medicine
DX: S90.32XA Contusion of left foot, initial encounter (principal); X58.XXXA Exposure to other specified factors, initial encounter
CPT/HCPCS: 73620; 99281; 99282

== ENCOUNTER 2024-07-14 10:01 | Emergency (ER) | payer BC, MEDICAID, SELFPAY ==
[2024-07-14 10:05] VITALS: BP 150/97; PULSE 97; RESP 18; TEMP 36.2; O2SAT 100; BMI 47.0
[2024-07-14] MEDS: Ketorolac 30 MG/ML Syringe IM (10:33)
--- NOTE | 2024-07-14 10:36 | ED.VIS.BACK ---
HPI History of Present Illness Chief Complaint: Back Narrative Narrative: Chief complaint and HPI: Lumbar back pain. 29-year-old female presents for evaluation of lumbar back pain. Patient states she had a mechanical fall on Thursday in which she landed on her knees and hands. She states Thursday she developed some mild low back pain that then worsened on Thursday. She states she twisted on Thursday and felt a pop in her back. She was seen at urgent care and placed on prednisone as well as methocarbamol. This has provided little relief. She states she had x-rays performed that were negative for fracture. Patient states that she has tried Tylenol, ice, heat again with little relief. Back pain is mostly located in the low lumbar spine however occasionally gets sharp pain into the bilateral thighs. Denies numbness, weakness, urinary retention, stool or urinary incontinence, saddle anesthesia, recent invasive manipulation of the spine, intravenous drug use, or fever. Review of systems: See HPI Medications: As listed on the chart Allergies: As listed on the chart PFSH: Per chart Vital signs: As listed on the chart. Reviewed. Physical exam: Gen: A&O x3, NAD Head: Normocephalic, atraumatic Eyes: No sclera icterus, conjunctiva clear, PERRL, EOMI ENT: Moist mucous membranes Neck: Trachea midline, No JVD, full range of motion, nontender CV: RRR, no murmurs, no peripheral edema Resp: Lungs CTA BL, no w/r/c GI: Abd soft, non-distended, non-tender, no r/r/g Musc: Full ROM, no deformity, strength +5/5 in all extremities, no midline spinal tenderness, no bony step-offs, no signs of infection, patient has tenderness to palpation in the bilateral paraspinal musculature of the lower lumbar spine-muscles are tense Skin: Warm, dry, intact Neuro: Alert, oriented, grossly intact, sensation intact, no focal deficits Psych: Cooperative, appropriate mood and affect [facility] Medical History Abdominal pain Acid reflux Anxiety Anxiety Cholelithiasis Constipation Depression Depression Diarrhea Fatigue Nausea RUQ pain Sleep apnea Home Medications ?Medication ?Instructions ?Recorded ?Last Taken ?Type escitalopram oxalate 10 mg tablet 10 mg PO DAILY 03/30/18 Unknown History pantoprazole 40 mg tablet,delayed 40 mg PO DAILY #30 tabs 04/02/18 04/08/18 07:30 Rx release (Protonix) 40 MG etonogestrel 68 mg subdermal 68 mg BC DAILY 04/07/18 Unknown History implant cyclobenzaprine 5 mg tablet 5 mg PO TID PRN muscle spasm 5 07/14/24 Unknown Rx days #15 tabs prednisone 20 mg tablet 20 mg PO BID 07/14/24 Unknown History Allergy/AdvReac Type Severity Reaction Status Date / Time No Known Allergies Allergy Verified 07/14/24 10:05 Family History Grandmother Breast cancer Surgical History History of carpal tunnel surgery right carpal tunnel S/P laparoscopic cholecystectomy (~04/08/18) Social History Smoking Status: Never smoker second hand exposure: No alcohol intake: current alcohol intake frequency: a few times a month substance use type: does not use caffeine: Yes EXAM Physical Exam Const Vital Signs: 07/14/24 10:05 07/14/24 12:23 Temperature 97.1 F L 97.2 F L Temperature Source Temporal Pulse Rate 97 79 Respiratory Rate 18 14 Blood Pressure 150/97 H 135/76 H Blood Pressure Mean 114 95 Pulse Ox 100 98 Oxygen Delivery Method Room Air MDM MDM MDM Narrative Medical decision making narrative: 29-year-old female presents for evaluation of lumbar back pain. Differential diagnosis includes but is not limited to back spasm, back strain, fracture, herniated disc. Given patient's physical exam, suspect more back spasm/back sprain. Patient states that she had negative x-rays performed. On chart review, I do not have access to this imaging. Patient states that she felt a pop in her back and endorses occasional pain into the thighs therefore we will order CT lumbar spine. Toradol ordered for pain. Patient drove today and therefore cannot receive muscle relaxer. CT of the lumbar spine is unremarkable. There is nothing to suggest any infectious etiology. The patient is not an IV drug user. There is no neurologic findings to suggest an acute cauda equina syndrome, therefore I do not think MRI or further imaging of the back is needed. Suspect back spasm/strain. Patient was educated on the findings. Follow-up with PCP. She has tried Flexeril in the past which has worked as a muscle relaxer. She was prescribed this. Tylenol and ibuprofen as needed for pain. She was educated not to take ibuprofen while taking prednisone. No ibuprofen for 8 hours that she received Toradol. She was educated to stop taking the other muscle relaxer. She confirmed understanding. Return precautions explained. Impression: 1. Lumbar back spasm/strain 2. Mechanical fall Radiography Diagnostic Testing: Clinical Impression(s) from Imaging Studies Lumbar Spine CT 07/14/24 11:08 IMPRESSION: UNREMARKABLE LUMBAR SPINE CT. Reading Location: [place] [address] Discharge Plan Triage Chief Complaint: Back ED Provider: Gabe Granda Dx/Rx/DC Orders Clinical Impression: Lumbar back pain Instructions: ED Back Pain (Acute or Chronic), ED Back Sprain/Strain Prescriptions: New cyclobenzaprine 5 mg tablet 5 mg PO TID PRN (Reason: muscle spasm) 5 Days Qty: 15 0RF Discontinued cyclobenzaprine 10 mg tablet 10 mg PO TID PRN (Reason: Muscle Spasm) Qty: 20 0RF methocarbamol 500 mg tablet 500 mg PO TID No Action pantoprazole [Protonix] 40 mg tablet,delayed release (DR/EC) 40 mg PO DAILY Qty: 30 1RF escitalopram oxalate 10 MG tablet 10 mg PO DAILY etonogestrel 68 MG implant 68 mg BC DAILY prednisone 20 mg tablet 20 mg PO BID Primary Care Provider: Bev Vizcaino NP Referrals: Bev Vizcaino NP, [employer] [Primary Care Provider] - 3-5 Days Activity Restrictions/Additional Instructions: Follow-up with your primary care physician. Return back to the ED if symptoms change or worsen. Stop taking the methocarbamol instead we will switch you to Flexeril. Tylenol and ibuprofen as needed for pain. No ibuprofen for 8 hours as you received a similar medication here. Do not take ibuprofen while taking prednisone Print Language: [place] Disposition Disposition: Home, Self Care Discharge Date/Time: 07/14/24 12:24
--- NOTE | 2024-07-14 11:08 | CT_ITS ---
PROCEDURE: SPINE LUMBAR WITHOUT CONTRAST 07/14/2024 REASON FOR EXAM: Low back pain following a recent fall. TECHNIQUE: Lumbar spine CT without contrast. Coronal and Sagittal reconstruction series were provided. One or more dose reduction techniques were used (e.g., Automated exposure control, adjustment of the mA and/or kV according to patient size, use of iterative reconstruction technique COMPARISON: None. RADIATION DOSE SUMMARY: CTDlvol: 32.85 mGy DLP: 1201.09 mGycm FINDINGS: Vertebrae: Unremarkable. Alignment: Good alignment. L1-2: Unremarkable L2-3: Unremarkable L3-4: Unremarkable L4-5: Unremarkable L5-S1: Unremarkable Sacrum: Unremarkable CT/Spine Lumbar without Contrast IMPRESSION: UNREMARKABLE LUMBAR SPINE CT. Reading Location: [place] [address]
[2024-07-14 12:23] VITALS: BP 135/76; PULSE 79; RESP 14; TEMP 36.2; O2SAT 98
== END 2024-07-14 12:24 | disposition home or self-care (01) ==
PROVIDERS: Emergency Provider Surgery; PCP Nurse Practitioner Primary Care; Visit Provider Surgery
DX: S39.012A Strain of muscle, fascia and tendon of lower back, initial encounter (principal); M62.830 Muscle spasm of back; W19.XXXA Unspecified fall, initial encounter; K21.9 Gastro-esophageal reflux disease without esophagitis; F41.9 Anxiety disorder, unspecified; F32.A Depression, unspecified; Z87.19 Personal history of other diseases of the digestive system; Z79.899 Other long term (current) drug therapy
CPT/HCPCS: 72131; 96372; 99282